=== PATIENT | male | born 1945 | race Hispanic/Latino ===

== ENCOUNTER 2018-05-18 18:01 | Inpatient (IN) | payer MEDICARE ==
--- NOTE | 2018-05-18 19:26 | Emergency Department Report ---
ED Altered Mental Status HPI - General Chief Complaint: Recheck/Abnormal Lab/Rx Stated Complaint: ABNORMAL LABS Time Seen by Provider: 05/18/18 18:30 Source: family Mode of arrival: Stretcher Limitations: No Limitations - History of Present Illness Initial Comments: 73-year-old male presents to the ED for elevated vancomycin trough level and elevated creatinine. The patient has been on vancomycin therapy for gangrenous foot and MRSA bacteremia for approximately one month now. Patient has history of dementia, and he actually pulled out his PICC line 3 days ago. On that same day the patient had a blood draw to check his vancomycin trough levels. Vancomycin was stopped 2 days prior to the blood draw. Vancomycin trough resulted at 38.4. He also had a creatinine of 3.0. Dr. Corona, infectious disease, was alerted of these lab abnormalities and instructed patient to come to the ER. -: days(s) (3) Severity: moderate Associated Symptoms: denies other symptoms - Related Data Home Medications Medication Instructions Recorded Confirmed Last Taken prednisoLONE ACETATE 1%(NF) [Pred 1 drops OP QID 01/07/13 05/18/18 Unknown Forte 1%(Nf)] Ergocalciferol [Vitamin D2] 25,000 units PO 1XW 03/24/18 05/18/18 Unknown FLUoxetine [PROzac] 20 mg PO QDAY 03/24/18 05/18/18 Unknown Previous Rx's Medication Instructions Recorded Last Taken Type AtorvaSTATin [Lipitor] 40 mg PO DAILY #30 tablet 03/27/18 Unknown Rx Ranitidine HCl [Acid Control] 150 mg PO BID #60 tablet 03/27/18 Unknown Rx Aspirin EC [Aspirin Enteric Coated 81 mg PO QDAY #30 tablet 04/26/18 Unknown Rx TAB] Clopidogrel [Plavix] 75 mg PO QDAY #30 tablet 04/26/18 Unknown Rx HYDROcodone/APAP 5-325 [Omar 1 each PO Q4HR PRN #30 tablet 04/26/18 Unknown Rx 5/325] Vancomycin 1,500 mg IV Q24H mg 04/26/18 Unknown Rx traZODone [Desyrel] 50 mg PO QHS #30 tablet 04/26/18 Unknown Rx Allergies Allergy/AdvReac Type Severity Reaction Status Date / Time No Known Allergies Allergy Verified 04/15/18 11:51 ED Review of Systems ROS: Stated complaint: ABNORMAL LABS Other details as noted in HPI Comment: All other systems reviewed and negative Constitutional: denies: chills, fever Gastrointestinal: denies: nausea, vomiting ED Past Medical Hx - Past Medical History Hx Hypertension: Yes Hx CVA: No Hx Heart Attack/AMI: Yes (s/p CABG) Hx Congestive Heart Failure: No Hx Diabetes: Yes Hx Deep Vein Thrombosis: No Hx Pulmonary Embolism: No Hx GERD: No Hx Liver Disease: No Hx Renal Disease: Yes (DAHIANA) Hx Sickle Cell Disease: No Hx Arthritis: Yes Hx Headaches / Migraines: No Hx Seizures: No Hx Kidney Stones: No Hx Psychiatric Treatment: No Hx Asthma: No Hx COPD: No Hx Tuberculosis: No Hx Dementia: Yes Hx HIV: No Additional medical history: high cholesterol defibillator - Surgical History Past Surgical History?: Yes Hx Coronary Stent: No Hx Open Heart Surgery: Yes Hx Pacemaker: No Hx Internal Defibrillator: Yes Hx Cholecystectomy: No Hx Appendectomy: No Hx Breast Surgery: No Additional Surgical History: quad bypass wound to left foot and vascular surgery - Social History Smoking Status: Former Smoker Substance Use Type: None - Medications Home Medications: Home Medications Medication Instructions Recorded Confirmed Last Taken Type prednisoLONE ACETATE 1%(NF) [Pred 1 drops OP QID 01/07/13 05/18/18 Unknown His tory Forte 1%(Nf)] Ergocalciferol [Vitamin D2] 25,000 units PO 1XW 03/24/18 05/18/18 Unknown History FLUoxetine [PROzac] 20 mg PO QDAY 03/24/18 05/18/18 Unknown History AtorvaSTATin [Lipitor] 40 mg PO DAILY #30 tablet 03/27/18 05/18/18 Unknown Rx Ranitidine HCl [Acid Control] 150 mg PO BID #60 tablet 03/27/18 05/18/18 Unknown Rx Aspirin EC [Aspirin Enteric Coated 81 mg PO QDAY #30 tablet 04/26/18 05/18/18 Unknown Rx TAB] Clopidogrel [Plavix] 75 mg PO QDAY #30 tablet 04/26/18 05/18/18 Unknown Rx HYDROcodone/APAP 5-325 [Omar 1 each PO Q4HR PRN #30 tablet 04/26/18 05/18/18 Unknown Rx 5/325] Vancomycin 1,500 mg IV Q24H mg 04/26/18 05/18/18 Unknown Rx traZODone [Desyrel] 50 mg PO QHS #30 tablet 04/26/18 05/18/18 Unknown Rx ED Physical Exam - General Limitations: No Limitations General appearance: alert, in no apparent distress - Head Head exam: Present: atraumatic, normocephalic - Eye Eye exam: Present: normal appearance - ENT ENT exam: Present: mucous membranes moist - Neck Neck exam: Present: normal inspection - Respiratory Respiratory exam: Present: normal lung sounds bilaterally. Absent: respiratory distress - Cardiovascular Cardiovascular Exam: Present: regular rate, normal rhythm - GI/Abdominal GI/Abdominal exam: Present: soft. Absent: distended - Extremities Exam Extremities exam: Present: other (right AKA present; dark discoloration to plantar aspect of left foot) - Neurological Exam Neurological exam: Present: alert, altered (baseline, hx of dementia) - Psychiatric Psychiatric exam: Present: normal affect, normal mood - Skin Skin exam: Present: warm, dry, intact, normal color. Absent: rash ED Course Vital Signs 05/18/18 05/18/18 05/18/18 18:15 18:18 18:42 Temperature 98.9 F 98.9 F Pulse Rate 93 H 93 H 123 H Respiratory 18 18 12 Rate Blood Pressure 113/69 Blood Pressure 113/69 [Right] O2 Sat by Pulse 99 99 Oximetry 05/18/18 05/18/18 05/18/18 18:45 19:01 19:15 Temperature Pulse Rate 84 79 77 Respiratory 17 25 H 20 Rate Blood Pressure 139/85 146/79 Blood Pressure [Right] O2 Sat by Pulse 96 95 Oximetry 05/18/18 05/18/18 05/18/18 19:30 19:45 20:00 Temperature Pulse Rate 78 76 80 Respiratory 18 16 17 Rate Blood Pressure 153/82 153/82 164/89 Blood Pressure [Right] O2 Sat by Pulse 95 95 96 Oximetry 05/18/18 05/18/18 05/18/18 20:15 20:30 20:45 Temperature Pulse Rate 81 79 92 H Respiratory 19 18 12 Rate Blood Pressure 162/92 162/92 162/92 Blood Pressure [Right] O2 Sat by Pulse 95 95 95 Oximetry 05/18/18 05/18/18 05/18/18 21:15 21:45 22:21 Temperature Pulse Rate 84 85 97 H Respiratory 20 16 20 Rate Blood Pressure 178/96 167/93 170/103 Blood Pressure [Right] O2 Sat by Pulse 98 97 99 Oximetry 05/18/18 05/18/18 22:31 22:41 Temperature Pulse Rate 90 92 H Respiratory 16 22 Rate Blood Pressure 170/103 170/103 Blood Pressure [Right] O2 Sat by Pulse 97 99 Oximetry - Consultations Consultation #1: 05/18/18 19:44 Spoke w/ Dr Corona. States pt does not require additional vancomycin, however, should be admitted for his acute renal failure. - Lab Data Result diagrams: 05/18/18 19:50 05/18/18 19:50 Lab Results 05/18/18 05/18/18 05/18/18 Range/Units 19:29 19:50 19:50 WBC 8.0 (4.5-11.0) K/mm3 RBC 4.09 (3.65-5.03) M/mm3 Hgb 11.8 (11.8-15.2) gm/dl Hct 34.6 L (35.5-45.6) % MCV 85 (84-94) fl MCH 29 (28-32) pg MCHC 34 (32-34) % RDW 14.3 (13.2-15.2) % Plt Count 245 (140-440) K/mm3 Lymph % (Auto) 14.3 (13.4-35.0) % [place] % (Auto) 9.6 H (0.0-7.3) % Eos % (Auto) 5.9 H (0.0-4.3) % Baso % (Auto) 0.8 (0.0-1.8) % Lymph # 1.1 L (1.2-5.4) K/mm3 [place] # 0.8 (0.0-0.8) K/mm3 Eos # 0.5 H (0.0-0.4) K/mm3 Baso # 0.1 (0.0-0.1) K/mm3 Seg Neutrophils % 69.4 (40.0-70.0) % Seg Neutrophils # 5.6 (1.8-7.7) K/mm3 Sodium 141 (137-145) mmol/L Potassium 2.8 L* (3.6-5.0) mmol/L Chloride 100.3 (98-107) mmol/L Carbon Dioxide 28 (22-30) mmol/L Anion Gap 16 mmol/L BUN 34 H (9-20) mg/dL Creatinine 3.6 H (0.8-1.5) mg/dL Estimated GFR 17 ml/min BUN/Creatinine Ratio 9 % Glucose 178 H (75-100) mg/dL POC Glucose (70-105) Calcium 8.6 (8.4-10.2) mg/dL Urine Color Yellow (Yellow) Urine Turbidity Clear (Clear) Urine pH 6.0 (5.0-7.0) Ur Specific Lee 1.011 (1.003-1.030) Urine Protein >500 (Negative) mg/dL Urine Glucose (UA) 150 (Negative) mg/dL Urine Ketones Neg (Negative) mg/dL Urine Blood Mod (Negative) Urine Nitrite Neg (Negative) Urine Bilirubin Neg (Negative) Urine Urobilinogen < 2.0 (<2.0) mg/dL Ur Leukocyte Esterase Neg (Negative) Urine WBC (Auto) 5.0 (0.0-6.0) /HPF Urine RBC (Auto) > 182.0 (0.0-6.0) /HPF U Epithel Cells (Auto) 1.0 (0-13.0) /HPF Urine Bacteria (Auto) 1+ (Negative) /HPF Urine Mucus Few /HPF 05/18/18 Range/Units 21:14 WBC (4.5-11.0) K/mm3 RBC (3.65-5.03) M/mm3 Hgb (11.8-15.2) gm/dl Hct (35.5-45.6) % MCV (84-94) fl MCH (28-32) pg MCHC (32-34) % RDW (13.2-15.2) % Plt Count (140-440) K/mm3 Lymph % (Auto) (13.4-35.0) % [place] % (Auto) (0.0-7.3) % Eos % (Auto) (0.0-4.3) % Baso % (Auto) (0.0-1.8) % Lymph # (1.2-5.4) K/mm3 [place] # (0.0-0.8) K/mm3 Eos # (0.0-0.4) K/mm3 Baso # (0.0-0.1) K/mm3 Seg Neutrophils % (40.0-70.0) % Seg Neutrophils # (1.8-7.7) K/mm3 Sodium (137-145) mmol/L Potassium (3.6-5.0) mmol/L Chloride (98-107) mmol/L Carbon Dioxide (22-30) mmol/L Anion Gap mmol/L BUN (9-20) mg/dL Creatinine (0.8-1.5) mg/dL Estimated GFR ml/min BUN/Creatinine Ratio % Glucose (75-100) mg/dL POC Glucose 164 H (70-105) Calcium (8.4-10.2) mg/dL Urine Color (Yellow) Urine Turbidity (Clear) Urine pH (5.0-7.0) Ur Specific Lee (1.003-1.030) Urine Protein (Negative) mg/dL Urine Glucose (UA) (Negative) mg/dL Urine Ketones (Negative) mg/dL Urine Blood (Negative) Urine Nitrite (Negative) Urine Bilirubin (Negative) Urine Urobilinogen (<2.0) mg/dL Ur Leukocyte Esterase (Negative) Urine WBC (Auto) (0.0-6.0) /HPF Urine RBC (Auto) (0.0-6.0) /HPF U Epithel Cells (Auto) (0-13.0) /HPF Urine Bacteria (Auto) (Negative) /HPF Urine Mucus /HPF Critical care attestation.: If time is entered above; I have spent that time in minutes in the direct care of this critically ill patient, excluding procedure time. ED Disposition Clinical Impression: Acute renal failure, Hypokalemia Disposition: OP ADMIT IP TO THIS HOSP Is pt being admited?: Yes Condition: Stable Time of Disposition: 21:23
--- NOTE | 2018-05-18 19:47 | Emergency Department Report ---
ED General Adult HPI - General Chief complaint: Recheck/Abnormal Lab/Rx Stated complaint: ABNORMAL LABS Time Seen by Provider: 05/18/18 18:30 Source: family Mode of arrival: Stretcher Limitations: No Limitations - History of Present Illness Severity scale (0 -10): 0 - Related Data Home Medications Medication Instructions Recorded Confirmed Last Taken prednisoLONE ACETATE 1%(NF) [Pred 1 drops OP QID 01/07/13 04/15/18 Unknown Forte 1%(Nf)] Ergocalciferol [Vitamin D2] 25,000 units PO 1XW 03/24/18 04/15/18 Unknown FLUoxetine [PROzac] 20 mg PO QDAY 03/24/18 04/15/18 Unknown Previous Rx's Medication Instructions Recorded Last Taken Type AtorvaSTATin [Lipitor] 40 mg PO DAILY #30 tablet 03/27/18 Unknown Rx Ranitidine HCl [Acid Control] 150 mg PO BID #60 tablet 03/27/18 Unknown Rx Aspirin EC [Aspirin Enteric Coated 81 mg PO QDAY #30 tablet 04/26/18 Unknown Rx TAB] Clopidogrel [Plavix] 75 mg PO QDAY #30 tablet 04/26/18 Unknown Rx HYDROcodone/APAP 5-325 [Imperial 1 each PO Q4HR PRN #30 tablet 04/26/18 Unknown Rx 5/325] Vancomycin 1,500 mg IV Q24H mg 04/26/18 Unknown Rx traZODone [Desyrel] 50 mg PO QHS #30 tablet 04/26/18 Unknown Rx Allergies Allergy/AdvReac Type Severity Reaction Status Date / Time No Known Allergies Allergy Verified 04/15/18 11:51 ED Review of Systems ROS: Stated complaint: ABNORMAL LABS Other details as noted in HPI ED Past Medical Hx - Past Medical History Hx Hypertension: Yes Hx CVA: No Hx Heart Attack/AMI: Yes (s/p CABG) Hx Congestive Heart Failure: No Hx Diabetes: Yes Hx Deep Vein Thrombosis: No Hx Pulmonary Embolism: No Hx GERD: No Hx Liver Disease: No Hx Renal Disease: Yes (DAHIANA) Hx Sickle Cell Disease: No Hx Arthritis: Yes Hx Headaches / Migraines: No Hx Seizures: No Hx Kidney Stones: No Hx Psychiatric Treatment: No Hx Asthma: No Hx COPD: No Hx Tuberculosis: No Hx Dementia: Yes Hx HIV: No Additional medical history: high cholesterol defibillator - Surgical History Past Surgical History?: Yes Hx Coronary Stent: No Hx Open Heart Surgery: Yes Hx Pacemaker: No Hx Internal Defibrillator: Yes Hx Cholecystectomy: No Hx Appendectomy: No Hx Breast Surgery: No Additional Surgical History: quad bypass wound to left foot and vascular surgery - Social History Smoking Status: Former Smoker Substance Use Type: None - Medications Home Medications: Home Medications Medication Instructions Recorded Confirmed Last Taken Type prednisoLONE ACETATE 1%(NF) [Pred 1 drops OP QID 01/07/13 04/15/18 Unknown History Forte 1%(Nf)] Ergocalciferol [Vitamin D2] 25,000 units PO 1XW 03/24/18 04/15/18 Unknown History FLUoxetine [PROzac] 20 mg PO QDAY 03/24/18 04/15/18 Unknown History AtorvaSTATin [Lipitor] 40 mg PO DAILY #30 tablet 03/27/18 04/15/18 Unknown Rx Ranitidine HCl [Acid Control] 150 mg PO BID #60 tablet 03/27/18 04/15/18 Unknown Rx Aspirin EC [Aspirin Enteric Coated 81 mg PO QDAY #30 tablet 04/26/18 Unknown Rx TAB] Clopidogrel [Plavix] 75 mg PO QDAY #30 tablet 04/26/18 Unknown Rx HYDROcodone/APAP 5-325 [Imperial 1 each PO Q4HR PRN #30 tablet 04/26/18 Unknown Rx 5/325] Vancomycin 1,500 mg IV Q24H mg 04/26/18 Unknown Rx traZODone [Desyrel] 50 mg PO QHS #30 tablet 04/26/18 Unknown Rx ED Physical Exam - General Limitations: No Limitations ED Course Vital Signs 05/18/18 05/18/18 18:15 18:18 Temperature 98.9 F 98.9 F Pulse Rate 93 H 93 H Respiratory 18 18 Rate Blood Pressure 113/69 Blood Pressure 113/69 [Right] O2 Sat by Pulse 99 99 Oximetry Critical care attestation.: If time is entered above; I have spent that time in minutes in the direct care of this critically ill patient, excluding procedure time. ED Disposition Condition: Stable Referrals: PRIMARY CARE,MD [Primary Care Provider] - 3-5 Days
[2018-05-18 20:00] LABS: Basophils # (Auto) 0.1 K/mm3 (0.0-0.1); Basophils % (Auto) 0.8 % (0.0-1.8); Eosinophils # (Auto) 0.5 K/mm3 (0.0-0.4); Eosinophils % (Auto) 5.9 % (0.0-4.3); Hematocrit 34.6 % (35.5-45.6); Hemoglobin 11.8 gm/dl (11.8-15.2); Lymphocytes # (Auto) 1.1 K/mm3 (1.2-5.4); Lymphocytes % (Auto) 14.3 % (13.4-35.0); Mean Corpuscular HGB Conc 34 % (32-34); Mean Corpuscular Volume 85 fl (84-94); Monocytes # (Auto) 0.8 K/mm3 (0.0-0.8); Monocytes % (Auto) 9.6 % (0.0-7.3); Platelet Count 245 K/mm3 (140-440); Red Blood Count 4.09 M/mm3 (3.65-5.03); Red Cell Distribution Width 14.3 % (13.2-15.2)
[2018-05-18 20:29] LABS: Calcium 8.6 mg/dL (8.4-10.2)
[2018-05-18] MEDS ORDERED: NACL 0.9% 1000 ML 1,000 ML IV ONE (20:56)
[2018-05-18] MEDS ORDERED: K-DUR PO ONE (20:56)
[2018-05-18 21:52] LABS: Bacteria,Urine 1+ /HPF (Negative); Bilirubin,Urine NEG (Negative); Blood,Urine MOD (Negative); Color,Urine Yellow (Yellow); Mucus,Urine FEW /HPF; Urobilinogen,Urine < 2.0 mg/dL (<2.0)
[2018-05-18 21:56] LABS: Protein,Urine >500 mg/dL (Negative); RBC,Urine > 182.0 /HPF (0.0-6.0)
[2018-05-18] MEDS ORDERED: ZOFRAN IV PRN (22:05)
[2018-05-18] MEDS ORDERED: TYLENOL PO PRN (22:05)
[2018-05-18] MEDS ORDERED: D50W (25GM) Syringe IV PRN (22:06)
[2018-05-18] MEDS ORDERED: NORCO 5/325 PO PRN (22:09)
[2018-05-18] MEDS ORDERED: KCL 10MEQ/100ML 0 MEQ/0 ML BAG IV ONE (22:28)
[2018-05-18] MEDS: KCL 10MEQ/100ML 10 MEQ/100 ML BAG IV SCH (22:43)
[2018-05-18] MEDS ORDERED: NACL 0.9% 1000 ML 1,000 ML IV SCH (23:00)
[2018-05-19] MEDS: KCL 10MEQ/100ML 10 MEQ/100 ML BAG IV SCH (00:17)
[2018-05-19] MEDS ORDERED: APRESOLINE IV PRN (01:08)
--- NOTE | 2018-05-19 07:25 | History and Physical Report ---
CHIEF COMPLAINT: Finding of abnormal lab result. HISTORY OF PRESENTING ILLNESS: The patient is a 73-year-old male who was treated for gangrenous foot and MRSA bacteremia about one month ago and then sent home on vancomycin antibiotics. The patient was going to have his vancomycin level checked and it was discovered to be too high with result of 38.4 and also elevated creatinine of 3.0. Based on this, the patient was sent back to the Emergency Room. There is no history of fever or chills at this point. There is no history of nausea or vomiting and the patient was then evaluated in the Emergency Room and found to have low potassium level as well as acute kidney injury. Based on this, the patient was presented for admission. PAST MEDICAL HISTORY: Pertinent for hypertension, coronary artery disease, diabetes mellitus, acute kidney injury, arthritis, dementia and defibrillator placement. PAST SURGICAL HISTORY: Pertinent for open heart surgery, defibrillator placement, vascular surgery. FAMILY HISTORY: Family history is noncontributory. SOCIAL HISTORY: The patient used to be a smoker, but does not smoke currently, does not drink alcohol and does not use illicit drugs. MEDICATIONS: The patient is on prednisolone acetate or Pred Forte 1% one drop to the affected eye q.i.d. Also, the patient is on vitamin D2 25,000 units by mouth every week and Prozac 20 mg by mouth daily. Also, the patient is on Lipitor 40 mg by mouth daily, ranitidine 150 mg by mouth twice daily, enteric-coated aspirin 81 mg by mouth daily, clopidogrel, Plavix 75 mg by mouth daily, [place] 5/325 mg one by mouth every 4 hours as needed for pain. Also, the patient is on vancomycin 1500 mg IV q. 24 hours and trazodone 50 mg at bedtime. ALLERGIES: There are no known drug allergies. REVIEW OF SYSTEMS: CONSTITUTIONAL: There is no fever, no chills, no diaphoresis. HEENT: There is no headache or sore throat. CARDIOVASCULAR SYSTEM: There is no chest pain or orthopnea. RESPIRATORY SYSTEM: There is no shortness of breath or cough. GASTROINTESTINAL SYSTEM: There is no nausea, no vomiting, no abdominal pain, diarrhea or constipation. NEUROLOGICAL SYSTEM: There is no numbness, no dizziness, no altered mental status. MUSCULOSKELETAL SYSTEM: There is no joint pain or swelling. DERMATOLOGICAL SYSTEM: There is no skin rash or itching. GENITOURINARY SYSTEM: There is no dysuria, hematuria or flank pain. Rest of system review is normal. PHYSICAL EXAMINATION: GENERAL: At the time of exam, the patient was found to be alert, oriented x 3 and not in acute distress. VITAL SIGNS: At the initial time of presentation showed temperature of 98.9 degrees Fahrenheit, pulse of 93, respiration 18, blood pressure 113/69, O2 sat of 99% on room air. HEENT: Show pupils to be equal, round, reactive to light and accommodating. Extraocular muscles are intact. NECK: Supple with no JVD or carotid bruit. CARDIOVASCULAR SYSTEM: Showed normal first and second heart sounds with no gallops or murmurs. RESPIRATORY SYSTEM: Show good air entry on both sides of the lung with no abnormal breath sounds. GASTROINTESTINAL SYSTEM: Show abdomen to be full, soft, nontender with no organomegaly or rigidity. NEUROLOGIC: Neuro exam shows no focal deficit. MUSCULOSKELETAL SYSTEM: Show no joint swelling or tenderness. DERMATOLOGICAL SYSTEM: Show no skin rash. GENITOURINARY SYSTEM: Showing no costovertebral angle tenderness. PERTINENT LABORATORY AND IMAGING STUDIES: The patient has CBC done with normal white count, normal hemoglobin and slightly low hematocrit of 34.6. The rest of CBC shows elevated monocyte count of 9.6% and elevated eosinophil count of 5.9 on CBC differential. The patient's chemistry showed low potassium level of 2.8 with elevated BUN of 34 and elevated creatinine of 3.6. Rest of the patient's chemistry was unremarkable. Urinalysis came back unremarkable and the patient's vancomycin trough level is high with a value of 24.8. Imaging studies, no imaging studies were done at this time. DIAGNOSES: 1. Acute renal failure. 2. Hypokalemia. 3. Elevated vancomycin level. PLAN OF ACTION: 1. The patient will be admitted to telemetry. 2. The patient will continue Infectious Disease consult with Julián Miller, who saw patient during the last visit when he had MRSA that prompted vancomycin treatment. 3. The patient will have Nephrology consult with Dr. Goldstein for acute kidney injury, possibly due to high vancomycin level. 4. The patient will be on Accu-Chek before meals and at bedtime, followed by low dose sliding scale using regular insulin coverage. 5. The patient will have IV potassium replacement 10 mEq in 100mL of normal saline given over 1 hour. The patient has already had 60 mg of potassium by mouth in the Emergency Room. 6. The patient will have basic metabolic panel checked this morning to trend the potassium level. 7. The patient will be on his home medications as shown in the medication reconciliation and this would involve holding vancomycin until the level comes down. 8. The patient will be on IV Zofran 4 mg every 8 hours as needed for nausea and vomiting. 9. The patient will be on consistent carbohydrate, low sodium diet. 10. The patient will be on sequential compressive device as DVT prophylaxis. JOB# [id number] OCN/NTS
[2018-05-19] MEDS ORDERED: NON-FORMULARY (Ranitidine Hcl [Acid Control] 150 MG) PO SCH (10:00)
[2018-05-19] MEDS ORDERED: PREDNISOLONE ACETATE 1% OP SCH (10:00)
[2018-05-19] MEDS: PLAVIX PO SCH (10:29)
[2018-05-19] MEDS: PEPCID PO SCH ×2 (10:29→22:58)
[2018-05-19] MEDS: HALFPRIN EC PO SCH (10:29)
[2018-05-19] MEDS: PROzac PO SCH (10:30)
[2018-05-19] MEDS: HumuLIN R SUB-Q SCH ×4 (10:34→22:58)
--- NOTE | 2018-05-19 11:59 | Consultation ---
History of Present Illness - Reason for Consult Consult date: 05/19/18 acute renal failure, accelerated hypertension Requesting physician: RODRIGUEZ ANAYA - History of Present Illness 73-year-old male presents to the ED for elevated vancomycin trough level and elevated creatinine. The patient has been on vancomycin therapy for gangrenous foot and MRSA bacteremia for approximately one month now. Patient has history of dementia, and he actually pulled out his PICC line 3 days ago. On that same day the patient had a blood draw to check his vancomycin trough levels. Vancomycin was stopped 2 days prior to the blood draw. Vancomycin trough resulted at 38.4. He also had a creatinine of 3.0. Dr. Corona, infectious disease, was alerted of these lab abnormalities and instructed patient to come to the ER. -: days(s) (3) Severity: moderate Associated Symptoms: denies other symptoms ROS: Stated complaint: ABNORMAL LABS Other details as noted in HPI Comment: All other systems reviewed and negative Constitutional: denies: chills, fever Gastrointestinal: denies: nausea, vomiting - Past Medical History Hx Hypertension: Yes Hx CVA: No Hx Heart Attack/AMI: Yes (s/p CABG) Hx Congestive Heart Failure: No Hx Diabetes: Yes Hx Deep Vein Thrombosis: No Hx Pulmonary Embolism: No Hx GERD: No Hx Liver Disease: No Hx Renal Disease: Yes (DAHIANA) Hx Sickle Cell Disease: No Hx Arthritis: Yes Hx Headaches / Migraines: No Hx Seizures: No Hx Kidney Stones: No Hx Psychiatric Treatment: No Hx Asthma: No Hx COPD: No Hx Tuberculosis: No Hx Dementia: Yes Hx HIV: No Additional medical history: high cholesterol defibillator - Surgical History Past Surgical History?: Yes Hx Coronary Stent: No Hx Open Heart Surgery: Yes Hx Pacemaker: No Hx Internal Defibrillator: Yes Hx Cholecystectomy: No Hx Appendectomy: No Hx Breast Surgery: No Additional Surgical History: quad bypass wound to left foot and vascular surgery - Social History Smoking Status: Former Smoker Substance Use Type: None Medications and Allergies Allergies Allergy/AdvReac Type Severity Reaction Status Date / Time No Known Allergies Allergy Verified 04/15/18 11:51 Home Medications Medication Instructions Recorded Confirmed Last Taken Type prednisoLONE ACETATE 1%(NF) [Pred 1 drops OP QID 01/07/13 05/18/18 Unknown History Forte 1%(Nf)] Ergocalciferol [Vitamin D2] 25,000 units PO 1XW 03/24/18 05/18/18 Unknown History FLUoxetine [PROzac] 20 mg PO QDAY 03/24/18 05/18/18 Unknown History AtorvaSTATin [Lipitor] 40 mg PO DAILY #30 tablet 03/27/18 05/18/18 Unknown Rx Ranitidine HCl [Acid Control] 150 mg PO BID #60 tablet 03/27/18 05/18/18 Unknown Rx Aspirin EC [Aspirin Enteric Coated 81 mg PO QDAY #30 tablet 04/26/18 05/18/18 Unknown Rx TAB] Clopidogrel [Plavix] 75 mg PO QDAY #30 tablet 04/26/18 05/18/18 Unknown Rx HYDROcodone/APAP 5-325 [[place] 1 each PO Q4HR PRN #30 tablet 04/26/18 05/18/18 Unknown Rx 5/325] Vancomycin 1,500 mg IV Q24H mg 04/26/18 05/18/18 Unknown Rx traZODone [Desyrel] 50 mg PO QHS #30 tablet 04/26/18 05/18/18 Unknown Rx Active Meds: Active Medications Acetaminophen (Tylenol) 650 mg PO Q4H PRN PRN Reason: Fever >101 Acetaminophen/Hydrocodone Bitart ([place] 5/325) 1 each PO Q4HR PRN PRN Reason: Pain Aspirin (Halfprin Ec) 81 mg PO QDAY [facility] Last Admin: 05/19/18 10:29 Dose: 81 mg Documented by: Atorvastatin Calcium (Lipitor) 40 mg PO DAILY [facility] Last Admin: 05/19/18 10:29 Dose: 40 mg Documented by: Clopidogrel Bisulfate (Plavix) 75 mg PO QDAY [facility] Last Admin: 05/19/18 10:29 Dose: 75 mg Documented by: Dextrose (D50w (25gm) Syringe) 50 ml IV PRN PRN PRN Reason: Hypoglycemia Ergocalciferol (Vitamin D2) 25,000 unit PO [facility] Famotidine (Pepcid) 10 mg PO BID [facility] Last Admin: 05/19/18 10:29 Dose: 10 mg Documented by: Fluoxetine HCl (Prozac) 20 mg PO QDAY [facility] Last Admin: 05/19/18 10:30 Dose: 20 mg Documented by: Hydralazine HCl (Apresoline) 10 mg IV Q4HR PRN PRN Reason: Blood Pressure Last Admin: 05/19/18 01:26 Dose: 10 mg Documented by: Insulin Human Regular (Humulin R) 0 units SUB-Q [facility]; Protocol Last Admin: 05/19/18 10:34 Dose: Not Given Documented by: Insulin Human Regular ([facility]ulin R) [facility]; Protocol Ondansetron HCl (Zofran) 4 mg IV Q8H PRN PRN Reason: Nausea And Vomiting Last Admin: 05/19/18 01:26 Dose: 4 mg Documented by: Prednisolone Acetate (Pred Forte 1%) 1 drops OU QID LEROY Trazodone HCl (Desyrel) 50 mg PO QHS [facility] Exam - Vital Signs Vital signs: Vital Signs Temp Pulse Resp BP Pulse Ox 98.9 F 93 H 18 113/69 99 05/18/18 18:15 05/18/18 18:15 05/18/18 18:15 05/18/18 18:15 05/18/18 18:15 - Physical Exam Narrative exam: - General Limitations: No Limitations General appearance: alert, in no apparent distress - Head Head exam: Present: atraumatic, normocephalic - Eye Eye exam: Present: normal appearance - ENT ENT exam: Present: mucous membranes moist - Neck Neck exam: Present: normal inspection - Respiratory Respiratory exam: Present: normal lung sounds bilaterally. Absent: respiratory distress - Cardiovascular Cardiovascular Exam: Present: regular rate, normal rhythm - GI/Abdominal GI/Abdominal exam: Present: soft. Absent: distended - Extremities Exam Extremities exam: Present: other (right AKA present; dark discoloration to plantar aspect of left foot) - Neurological Exam Neurological exam: Present: alert, altered (baseline, hx of dementia) - Psychiatric Psychiatric exam: Present: normal affect, normal mood - Skin Skin exam: Present: warm, dry, intact, normal color. 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
[2018-05-19] MEDS: PRED FORTE 1% OU SCH ×4 (12:47→23:02)
--- NOTE | 2018-05-19 17:30 | Progress Note ---
Assessment and Plan - Left diabetic foot ulcer Local wound care Consultants Wound cre physician Comments IV Zosyn, renal dose Continue IV vancomycin when the level returns to normal Check Lactic acid level Obtain Arterial Doppler left leg - Elevated vancomycin dose Patient was on home IV vancomycin. Serum level was found to be elevated for which he came to the hospital. We will obtain clinical pharmacology consult to assist dosing in the presence of acute renal failure - Acute renal failure Problem Secondary to high vancomycin level Hold vancomycin Human Resource Officer following - Diabetes mellitus Obtain A1c, lipid level, urine microalbumin Issue with sliding scale insulin Consistent carbohydrate diet - Peripheral arterial disease status post right above-knee amputation Obtain arterial Doppler left leg - H/o CAD ASA, BB Subjective Date of service: 05/19/18 Principal diagnosis: infected wound on the left foot, sepsis Interval history: Patient evaluated in bed in no obvious distress. Remains afebrile Objective - Exam Narrative Exam: Constitutional: Well-nourished well-developed. In no distress Head: Normocephalic atraumatic Eyes: Pupils are equal round and reactive to light Nose: No enlarged turbinates, no septal deviation. Mouth: Moist mucous membranes. Neck: Supple no thyromegaly. No bruit. No JVD Heart: Regular rate and rhythm, S1-S2 normal. No rubs murmurs or gallop Lungs: Clear to auscultation bilaterally. no rales or rhonchi Abdomen: Soft, nontender. Bowel sound are present. Extremities: Right [id number]-[id number] amputation. Left diabetic foot ulcer. Neuro: Alert oriented Oriented x3. No focal sensory or motor deficit. Skin: No rashes or hyperpigmented spots Musculoskeletal system: No joint pain or swelling Hematological: No petechia or subcutanous hemorrhages. Immunological: No multiple septic spots on the skin Lymphatic: No generalized lymphadenopathy Psychiatry: Euthymic. Calm. - Constitutional Vitals: Vital Signs - 12hr 05/19/18 05/19/18 08:32 10:00 Temperature 98.0 F Pulse Rate 101 H Respiratory 16 18 Rate Blood Pressure 136/82 O2 Sat by Pulse 95 Oximetry - Labs CBC & Chem 7: 05/18/18 19:50 05/19/18 06:01 Labs: Abnormal lab results 05/18/18 05/18/18 05/18/18 Range/Units 19:50 19:50 21:14 Hct 34.6 L (35.5-45.6) % [place] % (Auto) 9.6 H (0.0-7.3) % Eos % (Auto) 5.9 H (0.0-4.3) % Lymph # 1.1 L (1.2-5.4) K/mm3 Eos # 0.5 H (0.0-0.4) K/mm3 Potassium 2.8 L* (3.6-5.0) mmol/L BUN 34 H (9-20) mg/dL Creatinine 3.6 H (0.8-1.5) mg/dL Glucose 178 H (75-100) mg/dL POC Glucose 164 H (70-105) Calcium (8.4-10.2) mg/dL Vancomycin Trough (5.0-20.0) ug/mL 05/19/18 05/19/18 05/19/18 Range/Units 00:05 05:49 06:01 Hct (35.5-45.6) % [place] % (Auto) (0.0-7.3) % Eos % (Auto) (0.0-4.3) % Lymph # (1.2-5.4) K/mm3 Eos # (0.0-0.4) K/mm3 Potassium (3.6-5.0) mmol/L BUN 31 H (9-20) mg/dL Creatinine 3.3 H (0.8-1.5) mg/dL Glucose 155 H (75-100) mg/dL POC Glucose 163 H (70-105) Calcium 8.0 L (8.4-10.2) mg/dL Vancomycin Trough 24.8 H (5.0-20.0) ug/mL 05/19/18 Range/Units 12:27 Hct (35.5-45.6) % [place] % (Auto) (0.0-7.3) % Eos % (Auto) (0.0-4.3) % Lymph # (1.2-5.4) K/mm3 Eos # (0.0-0.4) K/mm3 Potassium (3.6-5.0) mmol/L BUN (9-20) mg/dL Creatinine (0.8-1.5) mg/dL Glucose (75-100) mg/dL POC Glucose 276 H (70-105) Calcium (8.4-10.2) mg/dL Vancomycin Trough (5.0-20.0) ug/mL
[2018-05-19] MEDS: NACL 0.45% 1000 ML 1,000 ML IV SCH (19:54)
[2018-05-19] MEDS: DESYREL PO SCH (22:58)
[2018-05-20 01:56] LABS: Basophils # (Auto) 0.1 K/mm3 (0.0-0.1); Basophils % (Auto) 0.7 % (0.0-1.8); Eosinophils # (Auto) 0.3 K/mm3 (0.0-0.4); Eosinophils % (Auto) 3.6 % (0.0-4.3); Hematocrit 32.9 % (35.5-45.6); Lymphocytes # (Auto) 1.3 K/mm3 (1.2-5.4); Lymphocytes % (Auto) 15.1 % (13.4-35.0); Mean Corpuscular HGB Conc 34 % (32-34); Mean Corpuscular Volume 86 fl (84-94); Monocytes % (Auto) 11.2 % (0.0-7.3); Platelet Count 216 K/mm3 (140-440); Red Blood Count 3.84 M/mm3 (3.65-5.03); Red Cell Distribution Width 14.7 % (13.2-15.2)
[2018-05-20 02:13] LABS: Albumin 2.6 g/dL (3.9-5); Calcium 8.2 mg/dL (8.4-10.2); Chol/HDL Ratio 2.57 %
[2018-05-20] MEDS: HumuLIN R SUB-Q SCH ×4 (08:38→22:16)
--- NOTE | 2018-05-20 09:56 | Progress Note ---
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 he has ATN due to vancomycin toxicity follow up daily random vanco levels, still 22.9 and not clearing, will continue to follow strict i/os, avoid nephrotoxins optimized meds for htn and dm -sp bedside debridement of left foot by GS on 04/23/18, cont wound care - sp revasc of LLE by luz saldaña on 04/18/18 Subjective Date of service: 05/20/18 Principal diagnosis: infected wound on the left foot, sepsis Interval history: resting well in bed today Objective - Exam Narrative Exam: - General Limitations: No Limitations General appearance: alert, in no apparent distress - Head Head exam: Present: atraumatic, normocephalic - Eye Eye exam: Present: normal appearance - ENT ENT exam: Present: mucous membranes moist - Neck Neck exam: Present: normal inspection - Respiratory Respiratory exam: Present: normal lung sounds bilaterally. Absent: respiratory distress - Cardiovascular Cardiovascular Exam: Present: regular rate, normal rhythm - GI/Abdominal GI/Abdominal exam: Present: soft. Absent: distended - Extremities Exam Extremities exam: Present: other (right AKA present; dark discoloration to plantar aspect of left foot) - Neurological Exam Neurological exam: Present: alert, altered (baseline, hx of dementia) - Psychiatric Psychiatric exam: Present: normal affect, normal mood - Skin Skin exam: Present: warm, dry, intact, normal color. Absent: rash - Vital Signs Vital signs: Vital Signs - 12hr 05/19/18 05/19/18 05/20/18 22:00 23:57 00:37 Temperature 98.4 F Pulse Rate 87 89 Pulse Rate [ 90 Right Radial] Respiratory 18 17 Rate Blood Pressure Blood Pressure 135/78 [Right] O2 Sat by Pulse 93 94 Oximetry 05/20/18 05/20/18 04:36 04:38 Temperature 97.3 F L Pulse Rate 89 Pulse Rate [ Right Radial] Respiratory 18 Rate Blood Pressure 123/98 Blood Pressure [Right] O2 Sat by Pulse 96 Oximetry - Lab 05/20/18 01:18 05/20/18 01:18 Most recent lab results Calcium 8.2 mg/dL (8.4-10.2) L 05/20/18 01:18 Medications & Allergies - Medications Allergies/Adverse Reactions: Allergies No Known Allergies Allergy (Verified 04/15/18 11:51) Home Medications: Home Medications Medication Instructions Recorded Confirmed Last Taken Type prednisoLONE ACETATE 1%(NF) [Pred 1 drops OP QID 01/07/13 05/18/18 Unknown History Forte 1%(Nf)] Ergocalciferol [Vitamin D2] 25,000 units PO 1XW 03/24/18 05/18/18 Unknown History FLUoxetine [PROzac] 20 mg PO QDAY 03/24/18 05/18/18 Unknown History AtorvaSTATin [Lipitor] 40 mg PO DAILY #30 tablet 03/27/18 05/18/18 Unknown Rx Ranitidine HCl [Acid Control] 150 mg PO BID #60 tablet 03/27/18 05/18/18 Unknown Rx Aspirin EC [Aspirin Enteric Coated 81 mg PO QDAY #30 tablet 04/26/18 05/18/18 Unknown Rx TAB] Clopidogrel [Plavix] 75 mg PO QDAY #30 tablet 04/26/18 05/18/18 Unknown Rx HYDROcodone/APAP 5-325 [[place] 1 each PO Q4HR PRN #30 tablet 04/26/18 05/18/18 Unknown Rx 5/325] Vancomycin 1,500 mg IV Q24H mg 04/26/18 05/18/18 Unknown Rx traZODone [Desyrel] 50 mg PO QHS #30 tablet 04/26/18 05/18/18 Unknown Rx Active Medications: Generic Name Dose Route Start Last Admin Trade Name Freq PRN Reason Stop Dose Admin Acetaminophen 650 mg 05/18/18 22:05 Tylenol PO Q4H PRN Fever >101 Acetaminophen/Hydrocodone Bitart 1 each 05/18/18 22:09 [place] 5/325 PO Q4HR PRN Pain Aspirin 81 mg 05/19/18 10:00 05/19/18 10:29 Halfprin Ec PO 81 mg QDAY LEROY Administration Atorvastatin Calcium 40 mg 05/19/18 10:00 05/19/18 10:29 Lipitor PO 40 mg DAILY LEROY Administration Clopidogrel Bisulfate 75 mg 05/19/18 10:00 05/19/18 10:29 Plavix PO 75 mg QDAY LEROY Administration Dextrose 50 ml 05/18/18 22:06 D50w (25gm) Syringe IV PRN PRN Hypoglycemia Ergocalciferol 25,000 unit 05/24/18 10:00 Vitamin D2 PO Fr [facility] Famotidine 10 mg 05/19/18 10:00 05/19/18 22:58 Pepcid PO 10 mg BID LEROY Administration Fluoxetine HCl 20 mg 05/19/18 10:00 05/19/18 10:30 Prozac PO 20 mg QDAY LEROY Administration Hydralazine HCl 10 mg 05/19/18 01:08 05/19/18 01:26 Apresoline IV 10 mg Q4HR PRN Administration Blood Pressure Sodium Chloride 1,000 mls @ 100 mls/hr 05/19/18 13:00 05/19/18 19:54 Nacl 0.45% 1000 Ml IV 100 mls/hr DIRECT LEROY Administration Insulin Human Regular 0 units 05/19/18 07:30 05/19/18 16:08 Humulin R SUB-Q Not Given AC [facility] Protocol Insulin Human Regular 0 units 05/19/18 22:00 05/19/18 22:58 Humulin R SUB-Q 3 units QHS LEROY Administration Protocol Ondansetron HCl 4 mg 05/18/18 22:05 05/19/18 01:26 Zofran IV 4 mg Q8H PRN Administration Nausea And Vomiting Prednisolone Acetate 1 drops 05/19/18 10:00 05/19/18 23:02 Pred Forte 1% OU 1 drops QID LEROY Administration Trazodone HCl 50 mg 05/19/18 22:00 05/19/18 22:58 Desyrel PO 50 mg QHS LEROY Administration
--- NOTE | 2018-05-20 10:36 | Vascular Lab Report ---
FINAL REPORT EXAM: VL ARTERIAL DUPLEX LE LT HISTORY: PAD TECHNIQUE: Stephens scale, color and pulsed Doppler ultrasound with color flow and spectral analysis carline luation of left lower extremity arteries were performed. PRIORS: None currently available. FINDINGS: LEFT EXTREMITY: Distal EIA, REGIONAL MARKETING DIRECTOR, proximal SFA, DFA, mid SFA, distal SFA, popliteal, CRIPPLE CHASER and LORNA velocities in cm/sec: 84, 88, 99, 92, 107, 50, 79, 37, and 17. Monophasic flow at the CRIPPLE CHASER and LORNA. Otherwise biphasic and triphasic flow in the remainder of the left lower extremity. Heterogeneous plaque throughout the left lower extremity. IMPRESSION: Hemodynamically significant stenosis suspected between the popliteal and the LORNA and CRIPPLE CHASER.
[2018-05-20] MEDS: PEPCID PO SCH ×2 (10:39→22:04)
[2018-05-20] MEDS: PLAVIX PO SCH (10:39)
[2018-05-20] MEDS: HALFPRIN EC PO SCH (10:39)
[2018-05-20] MEDS: PROzac PO SCH (10:39)
[2018-05-20] MEDS: PRED FORTE 1% OU SCH ×4 (10:42→22:18)
--- NOTE | 2018-05-20 13:16 | Consultation ---
History of Present Illness - Reason for Consult Consult date: 05/20/18 Elevated Vancomycin Level Requesting physician: GUILHERME SOTO - History of Present Illness The patient is a 73-year-old male with a past medical istory of Dementia, , coronary artery disease status post CABG, diabetes mellitus, hyperlipidemia, peripheral vascular disease that is known to ID. His recent admission on 04/15/18 and was noted to have hypotension, hypoxia and significant leukocytosis with concerns for sepsis and was admitted to the [facility]. Patient was noted to have left foot gangrene for which vascular surgery was consulted and the patient underwent a revascularization procedure on 04/18/2018. Blood cultures drawn on admission and grew MRSA, Left foot. wound cultures also grew MRSA. His sepsis was resolved and TTE and BARRON showed no vegetations with an EF of 40-45 %. Upon discharge he was set up receive Vancomycin 1g IV q day for 4 weeks ending 05/21/18. He was sent to the ED on 05/18/18 for elevated vancomycin trough levels that resulted at 38.4 , with a creatinine clearance of 3.0. He has been on Vancomycin therapy for approximately 3 weeks outpatient. On admission WBC 8.0, Creatinine 3.6, , Vancomycin Trough 24.8, Temperature 97.3, HR 87. Patient states that home antibiotic infusion was going well with the assistance of his son and cousin . Review of Systems: General: no fever, +chills, nightsweats, unintentional weight change, or change in appetite Cutaneous: no rash, pruritus Head: no headaches or injury Eyes: no changes in vision, eye pain, double vision Ears: no ear pain, ear discharge, ringing or hearing loss Nose: no nose bleeding, stuffiness Mouth & throat: no bleeding gums, no horseness, no dental problems, or swollen glands Neck: no pain, node enlargement/lumps, tyroid enlargement or tenderness Respiratory: no cough, wheezing, sputum, hemoptysis, pleuritic chest pain Cardiovascular: no chest pain, leg edema, cyanosis, ANDRES, orthopnea Musculoskeletal: no left foot pain or swelling Gastrointestinal: no nausea, vomiting, hematemesis, diarrhea, constipation, Genitourinary/Reproductive: no frequent urination, no dysuria, hematuria, incontinence Neurogical: no seizures, no headaches, no weakness, no paresthesias, no loss of speech or vision; no memory loss, no vertigo, no tremors, no numbness Psychiatric: stable mood; no excessive anxiety, sadness or moodiness Medications and Allergies Allergies Allergy/AdvReac Type Severity Reaction Status Date / Time No Known Allergies Allergy Verified 04/15/18 11:51 Home Medications Medication Instructions Recorded Confirmed Last Taken Type prednisoLONE ACETATE 1%(NF) [Pred 1 drops OP QID 01/07/13 05/18/18 Unknown History Forte 1%(Nf)] Ergocalciferol [Vitamin D2] 25,000 units PO 1XW 03/24/18 05/18/18 Unknown History FLUoxetine [PROzac] 20 mg PO QDAY 03/24/18 05/18/18 Unknown History AtorvaSTATin [Lipitor] 40 mg PO DAILY #30 tablet 03/27/18 05/18/18 Unknown Rx Ranitidine HCl [Acid Control] 150 mg PO BID #60 tablet 03/27/18 05/18/18 Unknown Rx Aspirin EC [Aspirin Enteric Coated 81 mg PO QDAY #30 tablet 04/26/18 05/18/18 Unknown Rx TAB] Clopidogrel [Plavix] 75 mg PO QDAY #30 tablet 04/26/18 05/18/18 Unknown Rx HYDROcodone/APAP 5-325 [[place] 1 each PO Q4HR PRN #30 tablet 04/26/18 05/18/18 Unknown Rx 5/325] Vancomycin 1,500 mg IV Q24H mg 04/26/18 05/18/18 Unknown Rx traZODone [Desyrel] 50 mg PO QHS #30 tablet 04/26/18 05/18/18 Unknown Rx Active Meds: Active Medications Acetaminophen (Tylenol) 650 mg PO Q4H PRN PRN Reason: Fever >101 Acetaminophen/Hydrocodone Bitart ([place] 5/325) 1 each PO Q4HR PRN PRN Reason: Pain Aspirin (Halfprin Ec) 81 mg PO QDAY [facility] Last Admin: 05/20/18 10:39 Dose: 81 mg Documented by: Atorvastatin Calcium (Lipitor) 40 mg PO DAILY [facility] Last Admin: 05/20/18 10:39 Dose: 40 mg Documented by: Clopidogrel Bisulfate (Plavix) 75 mg PO QDAY [facility] Last Admin: 05/20/18 10:39 Dose: 75 mg Documented by: Dextrose (D50w (25gm) Syringe) 50 ml IV PRN PRN PRN Reason: Hypoglycemia Ergocalciferol (Vitamin D2) 25,000 unit PO Fr [facility] Famotidine (Pepcid) 10 mg PO BID [facility] Last Admin: 05/20/18 10:39 Dose: 10 mg Documented by: Fluoxetine HCl (Prozac) 20 mg PO QDAY [facility] Last Admin: 05/20/18 10:39 Dose: 20 mg Documented by: Hydralazine HCl (Apresoline) 10 mg IV Q4HR PRN PRN Reason: Blood Pressure Last Admin: 05/19/18 01:26 Dose: 10 mg Documented by: Sodium Chloride (Nacl 0.45% 1000 Ml) 1,000 mls @ 100 mls/hr IV DIRECT [facility] Last Admin: 05/19/18 19:54 Dose: 100 mls/hr Documented by: Insulin Human Regular (Humulin R) 0 units SUB-Q AC [facility]; Protocol Last Admin: 05/19/18 16:08 Dose: Not Given Documented by: Insulin Human Regular (Humulin R) 0 units SUB-Q QHS [facility]; Protocol Last Admin: 05/19/18 22:58 Dose: 3 units Documented by: Ondansetron HCl (Zofran) 4 mg IV Q8H PRN PRN Reason: Nausea And Vomiting Last Admin: 05/19/18 01:26 Dose: 4 mg Documented by: Prednisolone Acetate (Pred Forte 1%) 1 drops OU QID [facility] Last Admin: 05/19/18 23:02 Dose: 1 drops Documented by: Trazodone HCl (Desyrel) 50 mg PO QHS [facility] Last Admin: 05/19/18 22:58 Dose: 50 mg Documented by: Physical Examination - Physical Exam Narrative exam: Constitutional: Alert, cooperative. No acute distress Head, Ears, Nose: Normocephalic, atraumatic. External ears, nose normal Eyes: Conjunctivae/corneas clear. No icterus. No ptosis. Neck: Supple, no meningeal signs Oral: dentition poor, no thrush Cardiovascular: S1, S2 normal. Respiratory: Good air entry, clear to auscultation bilaterally GI: Soft, non-tender; bowel sounds normal. No peritoneal signs Musculoskeletal: Escar noted on left plantar foot, dry, no odor or drainage, Skin: No rash or abscess. + right knee scab healed Hem/Lymphatic: No palpable cervical or supraclavicular nodes. No lymphangitis Psych: Mood ok. Affect normal Neurological: Awake, alert, oriented. - Constitutional Vitals: Vital Signs Temp Pulse Resp BP Pulse Ox 97.3 F L 89 18 123/98 96 05/20/18 04:38 05/20/18 04:36 05/20/18 04:38 05/20/18 04:36 05/20/18 04:36 Temperature -Last 24 Hours Temperature 97.3 F Temperature 98.4 F Temperature 98.9 F Temperature 98.0 F Results - Labs CBC & Chem 7: 05/20/18 01:18 05/20/18 01:18 Labs: Abnormal lab results 05/19/18 05/19/18 05/20/18 Range/Units 17:28 21:49 01:18 Hgb (11.8-15.2) gm/dl Hct (35.5-45.6) % [place] % (Auto) (0.0-7.3) % [place] # (0.0-0.8) K/mm3 BUN (9-20) mg/dL Creatinine (0.8-1.5) mg/dL Glucose (75-100) mg/dL POC Glucose 150 H 251 H (70-105) Hemoglobin A1c 7.8 H (4-6) % Calcium (8.4-10.2) mg/dL Albumin (3.9-5) g/dL 05/20/18 05/20/18 05/20/18 Range/Units 01:18 01:18 12:29 Hgb 11.0 L (11.8-15.2) gm/dl Hct 32.9 L (35.5-45.6) % [place] % (Auto) 11.2 H (0.0-7.3) % [place] # 1.0 H (0.0-0.8) K/mm3 BUN 35 H (9-20) mg/dL Creatinine 3.6 H (0.8-1.5) mg/dL Glucose 214 H (75-100) mg/dL POC Glucose 280 H (70-105) Hemoglobin A1c (4-6) % Calcium 8.2 L (8.4-10.2) mg/dL Albumin 2.6 L (3.9-5) g/dL Assessment and Plan Imaging 05/21/18 Duplex Scan Lower Extremity Artery: Hemodynamically significant stenosis suspected between the popliteal and the LORNA and METAL RIVETER. Previous Cultures: 04/15/2018 Blood: MRSA, resistant to penicillian and meropenem 04/18/2018 Blood: no growth after 5 days 04/23/2018 Left Foot: MRSA , reisistant to penicillian A/P: 73-year-old patient with a past medical history of Dementia, ,coronary artery disease status post CABG, diabetes mellitus, hyperlipidemia, peripheral vascular disease that is known to ID. His recent admission on 04/15/18 and was noted to have hypotension, hypoxia and significant leukocytosis with concerns for sepsis and was admitted to the [facility]. . Patient was noted to have left foot gangrene for which vascular surgery was consulted and the patient underwent a revascularization procedure on 04/18/2018. Blood cultures drawn on admission, grew MRSA, Left foot. wound cultures also grew MRSA. Upon discharge he was set up to receive Vancomycin 1g IV q day for 4 weeks ending 05/21/18, Now admitted with: 1. Vancomycin Toxcity: patient was discharged home on 04/26/18. Upon discharge he was set up to receive Vancomycin 1g IV q day for 4 weeks ending 05/21/18., for MRSA bacteremia and MRSA left foot He has been on vancomycin therapy for approximately 3 weeks at home.. Vanco trough levels were drawn at his Physicians office and resulted in a trough level of 38.4, Creatinine 3.0. Vancomycin random levels were drawn today 22.9. Vancomycin discontinued. 2. MRSA Bacteremia: from left foot gangrene, . Blood cultures showed clearance 04/18/18. Was being treated with Vancomycin, Currently off antibiotics 2. Left Diabetic Foot Ulcer: on exam Escar noted on left plantar foot, dry, no odor or drainage, Previous admission Left foot culture grew MRSA, resistant to penicillian. 3. DAHIANA: Most likely secondary to high vancomycin level. patient currently off antibiotics 4. Type 2 Diabetes Mellitus: uncontrolled, HBA1C 7.8, recommend strict glycemic control 5. PAD: s/p right above-knee amputation Plan: -Continue wound care -Monitor off antibiotics [facility] M: [phone] O:[phone]
--- NOTE | 2018-05-20 16:57 | Progress Note ---
Assessment and Plan - Left diabetic foot ulcer [facility] Wound cre physician Comments IV Zosyn, renal dose Continue IV vancomycin when the level returns to normal Check Lactic acid level Obtain Arterial Doppler left leg - Elevated vancomycin dose Patient was on home IV vancomycin. Serum level was found to be elevated for which he came to the hospital. Discussed with pharmacist. Vanc to be d/caitie tomorrow - Acute renal failure - resolved - Diabetes mellitus A1c - 5.9%, lipid level, urine microalbumin Issue with sliding scale insulin Consistent carbohydrate diet - Peripheral arterial disease status post right above-knee amputation Obtain arterial Doppler left leg - H/o CAD ASA, BB Subjective Date of service: 05/20/18 Principal diagnosis: infected wound on the left foot, sepsis Interval history: Patient evaluated in bed in no obvious distress. Remains afebrile Objective - Exam Narrative Exam: Constitutional: Well-nourished well-developed. In no distress Head: Normocephalic atraumatic Eyes: Pupils are equal round and reactive to light Nose: No enlarged turbinates, no septal deviation. Mouth: Moist mucous membranes. Neck: Supple no thyromegaly. No bruit. No JVD Heart: Regular rate and rhythm, S1-S2 normal. No rubs murmurs or gallop Lungs: Clear to auscultation bilaterally. no rales or rhonchi Abdomen: Soft, nontender. Bowel sound are present. Extremities: Right [id number] amputation. Left diabetic foot ulcer. Neuro: Alert oriented Oriented x3. No focal sensory or motor deficit. Skin: No rashes or hyperpigmented spots Musculoskeletal system: No joint pain or swelling Hematological: No petechia or subcutanous hemorrhages. Immunological: No multiple septic spots on the skin Lymphatic: No generalized lymphadenopathy Psychiatry: Euthymic. Calm. - Labs CBC & Chem 7: 05/20/18 01:18 05/20/18 01:18 Labs: Abnormal lab results 05/19/18 05/19/18 05/20/18 Range/Units 17:28 21:49 01:18 Hgb (11.8-15.2) gm/dl Hct (35.5-45.6) % [place] % (Auto) (0.0-7.3) % [place] # (0.0-0.8) K/mm3 BUN (9-20) mg/dL Creatinine (0.8-1.5) mg/dL Glucose (75-100) mg/dL POC Glucose 150 H 251 H (70-105) Hemoglobin A1c 7.8 H (4-6) % Calcium (8.4-10.2) mg/dL Albumin (3.9-5) g/dL 05/20/18 05/20/18 05/20/18 Range/Units 01:18 01:18 12:29 Hgb 11.0 L (11.8-15.2) gm/dl Hct 32.9 L (35.5-45.6) % [place] % (Auto) 11.2 H (0.0-7.3) % [place] # 1.0 H (0.0-0.8) K/mm3 BUN 35 H (9-20) mg/dL Creatinine 3.6 H (0.8-1.5) mg/dL Glucose 214 H (75-100) mg/dL POC Glucose 280 H (70-105) Hemoglobin A1c (4-6) % Calcium 8.2 L (8.4-10.2) mg/dL Albumin 2.6 L (3.9-5) g/dL
--- NOTE | 2018-05-20 17:23 | Consultation ---
History of Present Illness - Reason for Consult Consult date: 05/20/18 PVD with nonhealing ulcers to left foot Requesting physician: HERMES BO - History of Present Illness This patient is a 73-year-old male that was admitted via the emergency room on 05/18/2018 due to altered mental status. He was recently hospitalized at [facility]. He was noted to have peripheral arterial disease with ulceration to his left lower extremity. He underwent a percutaneous revascularization procedure during that admission (atherectomy and angioplasty with drug-coated balloons of the left femoral popliteal artery; left tibioperoneal trunk; and left posterior tibial artery). He subsequently had a bedside operative debridement of the wounds to his left foot by the wound care surgeons. He was discharged home on intravenous antibiotics. He apparently inadvertently pulled out his PICC line over the last few days. His condition apparently deteriorated thus prompting him to go to the emergency room where he has since been evaluated and admitted. He has dry ulcerations to his left foot. An arterial duplex was ordered, and a vascular surgery consult has been requested to further evaluate. His outpt care is supplied by [facility]. He denies follow up with the wound care clinic. Past History Past Medical History: CAD, diabetes, hypertension, hyperlipidemia, other (dementia) Past Surgical History: CABG, total hip replacement, Other (Pacemaker, RLE BKA, above stated perc revasc Apr 2018) Social history: denies: smoking (h/o Tobacco use), alcohol abuse Family history: CAD, diabetes, hypertension Medications and Allergies Allergies Allergy/AdvReac Type Severity Reaction Status Date / Time No Known Allergies Allergy Verified 04/15/18 11:51 Home Medications Medication Instructions Recorded Confirmed Last Taken Type prednisoLONE ACETATE 1%(NF) [Pred 1 drops OP QID 01/07/13 05/18/18 Unknown History Forte 1%(Nf)] Ergocalciferol [Vitamin D2] 25,000 units PO 1XW 03/24/18 05/18/18 Unknown History FLUoxetine [PROzac] 20 mg PO QDAY 03/24/18 05/18/18 Unknown History AtorvaSTATin [Lipitor] 40 mg PO DAILY #30 tablet 03/27/18 05/18/18 Unknown Rx Ranitidine HCl [Acid Control] 150 mg PO BID #60 tablet 03/27/18 05/18/18 Unknown Rx Aspirin EC [Aspirin Enteric Coated 81 mg PO QDAY #30 tablet 04/26/18 05/18/18 Unknown Rx TAB] Clopidogrel [Plavix] 75 mg PO QDAY #30 tablet 04/26/18 05/18/18 Unknown Rx HYDROcodone/APAP 5-325 [[place] 1 each PO Q4HR PRN #30 tablet 04/26/18 05/18/18 Unknown Rx 5/325] Vancomycin 1,500 mg IV Q24H mg 04/26/18 05/18/18 Unknown Rx traZODone [Desyrel] 50 mg PO QHS #30 tablet 04/26/18 05/18/18 Unknown Rx Active Meds: Active Medications Acetaminophen (Tylenol) 650 mg PO Q4H PRN PRN Reason: Fever >101 Acetaminophen/Hydrocodone Bitart ([place] 5/325) 1 each PO Q4HR PRN PRN Reason: Pain Aspirin (Halfprin Ec) 81 mg PO QDAY [facility] Last Admin: 05/20/18 10:39 Dose: 81 mg Documented by: Atorvastatin Calcium (Lipitor) 40 mg PO DAILY [facility] Last Admin: 05/20/18 10:39 Dose: 40 mg Documented by: Clopidogrel Bisulfate (Plavix) 75 mg PO QDAY [facility] Last Admin: 05/20/18 10:39 Dose: 75 mg Documented by: Dextrose (D50w (25gm) Syringe) 50 ml IV PRN PRN PRN Reason: Hypoglycemia Ergocalciferol (Vitamin D2) 25,000 unit PO [facility] Famotidine (Pepcid) 10 mg PO BID [facility] Last Admin: 05/20/18 10:39 Dose: 10 mg Documented by: Fluoxetine HCl (Prozac) 20 mg PO QDAY [facility] Last Admin: 05/20/18 10:39 Dose: 20 mg Documented by: Hydralazine HCl (Apresoline) 10 mg IV Q4HR PRN PRN Reason: Blood Pressure Last Admin: 05/19/18 01:26 Dose: 10 mg Documented by: Sodium Chloride (Nacl 0.45% 1000 Ml) 1,000 mls @ 100 mls/hr IV DIRECT [facility] Last Admin: 05/19/18 19:54 Dose: 100 mls/hr Documented by: Insulin Human Regular (Humulin R) 0 units SUB-Q [facility]; Protocol Last Admin: 05/19/18 16:08 Dose: Not Given Documented by: Insulin Human Regular (Humulin R) 0 units SUB-Q QHS [facility]; Protocol Last Admin: 05/19/18 22:58 Dose: 3 units Documented by: Ondansetron HCl (Zofran) 4 mg IV Q8H PRN PRN Reason: Nausea And Vomiting Last Admin: 05/19/18 01:26 Dose: 4 mg Documented by: Prednisolone Acetate (Pred Forte 1%) 1 drops OU QID [facility] Last Admin: 05/19/18 23:02 Dose: 1 drops Documented by: Trazodone HCl (Desyrel) 50 mg PO QHS [facility] Last Admin: 05/19/18 22:58 Dose: 50 mg Documented by: Review of Systems All systems: negative Exam - Constitutional Vitals: Temp Pulse Resp BP Pulse Ox 97.3 F L 89 18 123/98 96 05/20/18 04:38 05/20/18 04:36 05/20/18 04:38 05/20/18 04:36 05/20/18 04:36 General appearance: Present: no acute distress - EENT Eyes: Present: EOM intact ENT: hearing intact - Neck Neck: Present: supple - Respiratory Respiratory effort: normal - Extremities Extremities: normal temperature, abnormal (RLE BKA well healed, LLE with dry ulcerations to L foot. Scattered excoriations to the left leg. No erythema or drainage) - Psychiatric Psychiatric: appropriate mood/affect, cooperative - Neurologic Neurologic: no focal deficits Results - Labs CBC & Chem 7: 05/20/18 01:18 05/20/18 01:18 Labs: Abnormal lab results 05/19/18 05/19/18 05/20/18 Range/Units 17:28 21:49 01:18 Hgb (11.8-15.2) gm/dl Hct (35.5-45.6) % [place] % (Auto) (0.0-7.3) % [place] # (0.0-0.8) K/mm3 BUN (9-20) mg/dL Creatinine (0.8-1.5) mg/dL Glucose (75-100) mg/dL POC Glucose 150 H 251 H (70-105) Hemoglobin A1c 7.8 H (4-6) % Calcium (8.4-10.2) mg/dL Albumin (3.9-5) g/dL 05/20/18 05/20/18 05/20/18 Range/Units 01:18 01:18 12:29 Hgb 11.0 L (11.8-15.2) gm/dl Hct 32.9 L (35.5-45.6) % [place] % (Auto) 11.2 H (0.0-7.3) % [place] # 1.0 H (0.0-0.8) K/mm3 BUN 35 H (9-20) mg/dL Creatinine 3.6 H (0.8-1.5) mg/dL Glucose 214 H (75-100) mg/dL POC Glucose 280 H (70-105) Hemoglobin A1c (4-6) % Calcium 8.2 L (8.4-10.2) mg/dL Albumin 2.6 L (3.9-5) g/dL Assessment and Plan This patient has a history of peripheral arterial disease with ulceration to his left lower extremity. He was recently revascularized by percutaneous atherectomy/angioplasty (using drug coated balloons) to his left lower extremity and April 2018. A limited ultrasound was ordered. This did not include toe pressures. We will recheck this study. He may need additional intervention to promote wound healing, though this may need to be delayed given that he is currently in acute renal failure. Continue to offload pressure, medically optimized patient, promote good local wound care. Recommend consultation with the wound care nurse. - Patient Problems (1) Atherosclerosis of [place] arteries of the extremities with ulceration Current Visit: Yes Status: Acute (2) ARF (acute renal failure) with tubular necrosis Current Visit: No Status: Acute (3) Altered mental status Current Visit: No Status: Acute (4) Diabetes Current Visit: No Status: Acute (5) HTN (hypertension) Current Visit: No Status: Acute (6) CAD (coronary artery disease) Current Visit: No Status: Chronic (7) Hyperlipidemia Current Visit: No Status: Chronic (8) Altered mental status Onset Date: 01/15/13 Current Visit: No Status: Resolved
[2018-05-20] MEDS: DESYREL PO SCH (22:04)
[2018-05-20] MEDS: NACL 0.45% 1000 ML 1,000 ML IV SCH (22:19)
[2018-05-21] MEDS: NACL 0.45% 1000 ML 1,000 ML IV SCH ×2 (07:57→17:11)
[2018-05-21] MEDS: HumuLIN R SUB-Q SCH ×5 (08:16→21:47)
[2018-05-21 08:29] LABS: Calcium 8.3 mg/dL (8.4-10.2)
--- NOTE | 2018-05-21 09:42 | Progress Note ---
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 he has ATN due to vancomycin toxicity follow up daily random vanco levels, 18 today and improving continue gentle ivfs strict i/os, avoid nephrotoxins optimized meds for htn and dm -sp bedside debridement of left foot by GS on 04/23/18, cont wound care - sp revasc of LLE by luz saldaña on 04/18/18 Subjective Date of service: 05/21/18 Principal diagnosis: infected wound on the left foot, sepsis Interval history: resting well in bed today Objective - Exam Narrative Exam: - General Limitations: No Limitations General appearance: alert, in no apparent distress - Head Head exam: Present: atraumatic, normocephalic - Eye Eye exam: Present: normal appearance - ENT ENT exam: Present: mucous membranes moist - Neck Neck exam: Present: normal inspection - Respiratory Respiratory exam: Present: normal lung sounds bilaterally. Absent: respiratory distress - Cardiovascular Cardiovascular Exam: Present: regular rate, normal rhythm - GI/Abdominal GI/Abdominal exam: Present: soft. Absent: distended - Extremities Exam Extremities exam: Present: other (right AKA present; dark discoloration to plan tar aspect of left foot) - Neurological Exam Neurological exam: Present: alert, altered (baseline, hx of dementia) - Psychiatric Psychiatric exam: Present: normal affect, normal mood - Skin Skin exam: Present: warm, dry, intact, normal color. Absent: rash - Vital Signs Vital signs: Vital Signs - 12hr 05/20/18 05/21/18 05/21/18 23:58 03:22 07:55 Temperature 98.2 F 98.1 F 97.5 F L Pulse Rate 81 82 96 H Respiratory 18 18 18 Rate Blood Pressure 155/103 151/92 155/96 O2 Sat by Pulse 95 95 97 Oximetry - Lab 05/20/18 01:18 05/21/18 06:03 Most recent lab results Calcium 8.3 mg/dL (8.4-10.2) L 05/21/18 06:03 Medications & Allergies - Medications Allergies/Adverse Reactions: Allergies No Known Allergies Allergy (Verified 04/15/18 11:51) Home Medications: Home Medications Medication Instructions Recorded Confirmed Last Taken Type prednisoLONE ACETATE 1%(NF) [Pred 1 drops OP QID 01/07/13 05/18/18 Unknown History Forte 1%(Nf)] Ergocalciferol [Vitamin D2] 25,000 units PO 1XW 03/24/18 05/18/18 Unknown History FLUoxetine [PROzac] 20 mg PO QDAY 03/24/18 05/18/18 Unknown History AtorvaSTATin [Lipitor] 40 mg PO DAILY #30 tablet 03/27/18 05/18/18 Unknown Rx Ranitidine HCl [Acid Control] 150 mg PO BID #60 tablet 03/27/18 05/18/18 Unknown Rx Aspirin EC [Aspirin Enteric Coated 81 mg PO QDAY #30 tablet 04/26/18 05/18/18 Unknown Rx TAB] Clopidogrel [Plavix] 75 mg PO QDAY #30 tablet 04/26/18 05/18/18 Unknown Rx HYDROcodone/APAP 5-325 [[place] 1 each PO Q4HR PRN #30 tablet 04/26/18 05/18/18 Unknown Rx 5/325] Vancomycin 1,500 mg IV Q24H mg 04/26/18 05/18/18 Unknown Rx traZODone [Desyrel] 50 mg PO QHS #30 tablet 04/26/18 05/18/18 Unknown Rx Active Medications: Generic Name Dose Route Start Last Admin Trade Name Freq PRN Reason Stop Dose Admin Acetaminophen 650 mg 05/18/18 22:05 Tylenol PO Q4H PRN Fever >101 Acetaminophen/Hydrocodone Bitart 1 each 05/18/18 22:09 [place] 5/325 PO Q4HR PRN Pain Aspirin 81 mg 05/19/18 10:00 05/20/18 10:39 Halfprin Ec PO 81 mg QDAY [facility] Administration Atorvastatin Calcium 40 mg 05/19/18 10:00 05/20/18 10:39 Lipitor PO 40 mg DAILY [facility] Administration Clopidogrel Bisulfate 75 mg 05/19/18 10:00 05/20/18 10:39 Plavix PO 75 mg QDAY [facility] Administration Dextrose 50 ml 05/18/18 22:06 D50w (25gm) Syringe IV PRN PRN Hypoglycemia Ergocalciferol 25,000 unit 05/24/18 10:00 Vitamin D2 PO Fr [facility] Famotidine 10 mg 05/19/18 10:00 05/20/18 22:04 Pepcid PO 10 mg BID [facility] Administration Fluoxetine HCl 20 mg 05/19/18 10:00 05/20/18 10:39 Prozac PO 20 mg QDAY [facility] Administration Hydralazine HCl 10 mg 05/19/18 01:08 05/19/18 01:26 Apresoline IV 10 mg Q4HR PRN Administration Blood Pressure Sodium Chloride 1,000 mls @ 100 mls/hr 05/19/18 13:00 05/21/18 07:57 Nacl 0.45% 1000 Ml IV 100 mls/hr DIRECT [facility] Administration Insulin Human Regular 0 units 05/19/18 07:30 05/21/18 08:16 Humulin R SUB-Q 1 units AC [facility] Administration Protocol Insulin Human Regular 0 units 05/19/18 22:00 05/20/18 22:16 Humulin R SUB-Q 2 units QHS [facility] Administration Protocol Ondansetron HCl 4 mg 05/18/18 22:05 05/19/18 01:26 Zofran IV 4 mg Q8H PRN Administration Nausea And Vomiting Prednisolone Acetate 1 drops 05/19/18 10:00 05/20/18 22:18 Pred Forte 1% OU 1 drops QID [facility] Administration Trazodone HCl 50 mg 05/19/18 22:00 05/20/18 22:04 Desyrel PO 50 mg QHS [facility] Administration
[2018-05-21] MEDS: PROzac PO SCH (10:17)
[2018-05-21] MEDS: PEPCID PO SCH ×2 (10:17→21:50)
[2018-05-21] MEDS: PLAVIX PO SCH (10:17)
[2018-05-21] MEDS: HALFPRIN EC PO SCH (10:17)
[2018-05-21] MEDS: PRED FORTE 1% OU SCH ×5 (10:17→21:56)
--- NOTE | 2018-05-21 10:24 | Progress Note ---
Assessment and Plan Imaging 05/21/18 Duplex Scan Lower Extremity Artery: Hemodynamically significant stenosis suspected between the popliteal and the LORNA and [employer]. Previous Cultures: 04/15/2018 Blood: MRSA, resistant to penicillian and meropenem 04/18/2018 Blood: no growth after 5 days 04/23/2018 Left Foot: MRSA , resistant to penicillian A/P: 73-year-old patient with a past medical history of Dementia, ,coronary artery disease status post CABG, diabetes mellitus, hyperlipidemia, peripheral vascular disease that is known to ID. His recent admission on 04/15/18 and was noted to have hypotension, hypoxia and significant leukocytosis with concerns for sepsis and was admitted to the [facility]. . Patient was noted to have left foot gangrene for which vascular surgery was consulted and the patient underwent a revascularization procedure on 04/18/2018. Blood cultures drawn on admission, grew MRSA, Left foot. wound cultures also grew MRSA. Upon discharge he was set up to receive Vancomycin 1g IV q day for 4 weeks ending 05/21/18, Now admitted with: 1. Vancomycin Toxcity: patient was discharged home on 04/26/18. Upon discharge he was set up to receive Vancomycin 1g IV q day for 4 weeks ending 05/21/18., for MRSA bacteremia and MRSA left foot He has been on vancomycin therapy for approximately 3 weeks at home.. Vanco trough levels were drawn at his Physicians office and resulted in a trough level of 38.4, Creatinine 3.0. Vancomycin random levels improving. 2. MRSA Bacteremia: from left foot gangrene, . Blood cultures showed clearance 04/18/18. Was being treated with Vancomycin, Currently off antibiotics 2. Left Diabetic Foot Ulcer: on exam Escar noted on left plantar foot, dry, no odor or drainage, Previous admission Left foot culture grew MRSA, resistant to penicillian. 3. DAHIANA: Most likely secondary to high vancomycin level. patient currently off antibiotics 4. Type 2 Diabetes Mellitus: uncontrolled, HBA1C 7.8, recommend strict glycemic control 5. PAD: s/p right above-knee amputation Plan: -Continue wound care -Monitor off antibiotics [facility] M: [phone] O:[phone] Subjective Date of service: 05/21/18 Principal diagnosis: infected wound on the left foot, sepsis Interval history: Patient seen and examined. Stated that he was feeling good today and was ready to go home. No SOB, pain or fevers. Objective - Exam Narrative Exam: Constitutional: Alert, cooperative. No acute distress Head, Ears, Nose: Normocephalic, atraumatic. External ears, nose normal Eyes: Conjunctivae/corneas clear. No icterus. No ptosis. Neck: Supple, no meningeal signs Oral: dentition poor, no thrush Cardiovascular: S1, S2 normal. Respiratory: Good air entry, clear to auscultation bilaterally GI: Soft, non-tender; bowel sounds normal. No peritoneal signs Musculoskeletal: Escar noted on left plantar foot, dry, no odor or drainage, Skin: No rash or abscess. + right knee scab healed Hem/Lymphatic: No palpable cervical or supraclavicular nodes. No lymphangitis Psych: Mood ok. Affect normal Neurological: Awake, alert, oriented. - Constitutional Vitals: Vital Signs Temp Pulse Resp BP Pulse Ox 97.5 F L 96 H 18 155/96 97 05/21/18 07:55 05/21/18 07:55 05/21/18 07:55 05/21/18 07:55 05/21/18 07:55 Temperature -Last 24 Hours Temperature 97.5 F Temperature 98.1 F Temperature 98.2 F Temperature 98.4 F - Labs CBC & Chem 7: 05/20/18 01:18 05/21/18 06:03 Labs: Abnormal lab results 05/20/18 05/20/18 05/20/18 Range/Units 12:29 17:36 22:08 BUN (9-20) mg/dL Creatinine (0.8-1.5) mg/dL Glucose (75-100) mg/dL POC Glucose 280 H 236 H 222 H (70-105) Calcium (8.4-10.2) mg/dL 05/21/18 05/21/18 Range/Units 06:03 06:04 BUN 33 H (9-20) mg/dL Creatinine 3.1 H (0.8-1.5) mg/dL Glucose 160 H (75-100) mg/dL POC Glucose 159 H (70-105) Calcium 8.3 L (8.4-10.2) mg/dL
--- NOTE | 2018-05-21 12:19 | Event Note ---
Date: 05/21/18 Pt sleeping, but awoke easily. Without complaint at present. Await additional vascular lab study. Further recommendation based upon this study, though further arterial intervention likely on hold for now given ARF.
--- NOTE | 2018-05-21 13:27 | Progress Note ---
Assessment and Plan Assessment and plan: Vancomycin toxicity -off vanc -Level trended down ATN 2/2 vancomycin toxicity -levels improving -nephrology following H/O MRSA bacteremia 2/2 Left foot gangrene -cont wound care -off antibiotics DM2 with hyperglycemia -on SSI, Lantus added Peripheral arterial disease status post right above-knee amputation -on asa and plavix -arterial Doppler left leg showed significant stenosis -vascular recommended surgical intervention when his ARF resolves H/o CAD, stable -cont home meds HTN -uncontrolled, coreg added Disp: For d/c when cleared by nephrology History Interval history: Pt has no new complaints Hospitalist Physical - Constitutional Vitals: Temp Pulse Resp BP Pulse Ox 97.5 F L 96 H 18 155/96 97 05/21/18 07:55 05/21/18 07:55 05/21/18 07:55 05/21/18 07:55 05/21/18 07:55 General appearance: Present: no acute distress - EENT Eyes: Present: PERRL, EOM intact - Neck Neck: Present: supple, normal ROM - Respiratory Respiratory effort: normal Respiratory: bilateral: CTA - Cardiovascular Rhythm: regular Heart Sounds: Present: S1 & S2 - Extremities Extremity abnormal: other (RT BKA. Ulcers noted on the plantar surface of LT foot) - Abdominal General gastrointestinal: soft, non-tender, normal bowel sounds - Neurologic Neurologic: CNII-XII intact Results - Labs CBC & Chem 7: 05/20/18 01:18 05/21/18 06:03 Labs: Laboratory Last Values WBC 8.5 K/mm3 (4.5-11.0) 05/20/18 01:18 RBC 3.84 M/mm3 (3.65-5.03) 05/20/18 01:18 Hgb 11.0 gm/dl (11.8-15.2) L 05/20/18 01:18 Hct 32.9 % (35.5-45.6) L 05/20/18 01:18 MCV 86 fl (84-94) 05/20/18 01:18 MCH 29 pg (28-32) 05/20/18 01:18 MCHC 34 % (32-34) 05/20/18 01:18 RDW 14.7 % (13.2-15.2) 05/20/18 01:18 Plt Count 216 K/mm3 (140-440) 05/20/18 01:18 Lymph % (Auto) 15.1 % (13.4-35.0) 05/20/18 01:18 [place] % (Auto) 11.2 % (0.0-7.3) H 05/20/18 01:18 Eos % (Auto) 3.6 % (0.0-4.3) 05/20/18 01:18 Baso % (Auto) 0.7 % (0.0-1.8) 05/20/18 01:18 Lymph # 1.3 K/mm3 (1.2-5.4) 05/20/18 01:18 [place] # 1.0 K/mm3 (0.0-0.8) H 05/20/18 01:18 Eos # 0.3 K/mm3 (0.0-0.4) 05/20/18 01:18 Baso # 0.1 K/mm3 (0.0-0.1) 05/20/18 01:18 Seg Neutrophils % 69.4 % (40.0-70.0) 05/20/18 01:18 Seg Neutrophils # 5.9 K/mm3 (1.8-7.7) 05/20/18 01:18 Sodium 140 mmol/L (137-145) 05/21/18 06:03 Potassium 4.4 mmol/L (3.6-5.0) 05/21/18 06:03 Chloride 101.6 mmol/L (98-107) 05/21/18 06:03 Carbon Dioxide 25 mmol/L (22-30) 05/21/18 06:03 Anion Gap 18 mmol/L 05/21/18 06:03 BUN 33 mg/dL (9-20) H 05/21/18 06:03 Creatinine 3.1 mg/dL (0.8-1.5) H 05/21/18 06:03 Estimated GFR 20 ml/min 05/21/18 06:03 BUN/Creatinine Ratio 11 % 05/21/18 06:03 Glucose 160 mg/dL (75-100) H 05/21/18 06:03 POC Glucose 274 (70-105) H 05/21/18 12:33 Hemoglobin A1c 7.8 % (4-6) H 05/20/18 01:18 Lactic Acid 1.00 mmol/L (0.7-2.0) 05/21/18 06:03 Calcium 8.3 mg/dL (8.4-10.2) L 05/21/18 06:03 Total Bilirubin 0.20 mg/dL (0.1-1.2) 05/20/18 01:18 AST 14 units/L (5-40) 05/20/18 01:18 ALT 8 units/L (7-56) 05/20/18 01:18 Alkaline Phosphatase 107 units/L (35-129) 05/20/18 01:18 Total Protein 6.6 g/dL (6.3-8.2) 05/20/18 01:18 Albumin 2.6 g/dL (3.9-5) L 05/20/18 01:18 Albumin/Globulin Ratio 0.7 % 05/20/18 01:18 Triglycerides 86 mg/dL (2-149) 05/20/18 01:18 Cholesterol 108 mg/dL (50-199) 05/20/18 01:18 LDL Cholesterol Direct 51 mg/dL (50-130) 05/20/18 01:18 HDL Cholesterol 42 mg/dL (40-59) 05/20/18 01:18 Cholesterol/HDL Ratio 2.57 % 05/20/18 01:18 Urine Color Yellow (Yellow) 05/18/18 19: Urine Turbidity Clear (Clear) 05/18/18 19: Urine pH 6.0 (5.0-7.0) 05/18/18 19: Ur Specific [place] 1.011 (1.003-1.030) 05/18/18 19: Urine Protein >500 mg/dL (Negative) 05/18/18 19: Urine Glucose (UA) 150 mg/dL (Negative) 05/18/18 19: Urine Ketones Neg mg/dL (Negative) 05/18/18 19: Urine Blood Mod (Negative) 05/18/18: Urine Nitrite Neg (Negative) 05/18/18 19: Urine Bilirubin Neg (Negative) 05/18/18 19: Urine Urobilinogen < 2.0 mg/dL (<2.0) 05/18/18 19: Ur Leukocyte Esterase Neg (Negative) 05/18/18 19: Urine WBC (Auto) 5.0 /HPF (0.0-6.0) 05/18/18 19:29 Urine RBC (Auto) > 182.0 /HPF (0.0-6.0) 05/18/18 19:29 U Epithel Cells (Auto) 1.0 /HPF (0-13.0) 05/18/18 19:29 Urine Bacteria (Auto) 1+ /HPF (Negative) 05/18/18 19:29 Urine Mucus Few /HPF 05/18/18 19:29 Vancomycin Trough 24.8 ug/mL (5.0-20.0) H 05/19/18 00:05 Random Vancomycin 18.2 ug/mL (0-40.0) 05/21/18 06:03 Nutrition/Malnutrition Assess - Dietary Evaluation Nutrition/Malnutrition Findings: Nutrition Notes Start: 05/19/18 14:15 Freq: Status: Active Protocol: Document 05/19/18 14:15 RM (Rec: 05/19/18 14:16 RM [id number]) Nutrition Notes Need for Assessment generated from: field reimbursement manager Initial or Follow up Brief Note Current Diagnosis Acute Kidney Injury Coronary Artery Disease Diabetes Hypertension Subjective/Other Information Screened for new onset DM diet education. Pt already familiar with diet. Nutrition Intervention Revisit per MD consult or patient Sign Off request:
[2018-05-21] MEDS ORDERED: LANTUS SUB-Q ONE (13:28)
[2018-05-21] MEDS: COREG PO SCH ×2 (14:09→21:50)
[2018-05-21] MEDS: DESYREL PO SCH (21:50)
[2018-05-21] MEDS ORDERED: LANTUS SUB-Q SCH (22:00)
[2018-05-22] MEDS: NACL 0.45% 1000 ML 1,000 ML IV SCH (05:14)
[2018-05-22 05:53] LABS: Calcium 7.9 mg/dL (8.4-10.2)
[2018-05-22] MEDS: HumuLIN R SUB-Q SCH ×3 (07:24→18:00)
[2018-05-22] MEDS: PRED FORTE 1% OU SCH ×3 (10:00→19:44)
--- NOTE | 2018-05-22 12:51 | Progress Note ---
Assessment and Plan Impression: DAHIANA due to ATN Vancomycin toxicity severe Sepsis MRSA UTI HTN left foot wound with eschar and area of fluctuance, POA unstageable pressure ulcer Acute resp failure with hypoxia, resolved PAD of LLE Plan cr noted, better today, no indication for ceo he has ATN due to vancomycin toxicity follow up daily random vanco levels, 14 today and improving continue gentle ivfs strict i/os, avoid nephrotoxins optimized meds for htn and dm -sp bedside debridement of left foot by GS on 04/23/18, cont wound care - sp revasc of LLE by luz saldaña on 04/18/18 ok to dc from renal standpoint Subjective Date of service: 05/22/18 Principal diagnosis: infected wound on the left foot, sepsis Interval history: resting well in bed today Objective - Exam Narrative Exam: - General Limitations: No Limitations General appearance: alert, in no apparent distress - Head Head exam: Present: atraumatic, normocephalic - Eye Eye exam: Present: normal appearance - ENT ENT exam: Present: mucous membranes moist - Neck Neck exam: Present: normal inspection - Respiratory Respiratory exam: Present: normal lung sounds bilaterally. Absent: respiratory distress - Cardiovascular Cardiovascular Exam: Present: regular rate, normal rhythm - GI/Abdominal GI/Abdominal exam: Present: soft. Absent: distended - Extremities Exam Extremities exam: Present: other (right AKA present; dark discoloration to plantar aspect of left foot) - Neurological Exam Neurological exam: Present: alert, altered (baseline, hx of dementia) - Psychiatric Psychiatric exam: Present: normal affect, normal mood - Skin Skin exam: Present: warm, dry, intact, normal color. Absent: rash - Vital Signs Vital signs: Vital Signs - 12hr 05/22/18 05/22/18 04:55 09:06 Temperature 98.1 F 98.1 F Pulse Rate 66 69 Respiratory 18 18 Rate Blood Pressure 139/65 143/78 O2 Sat by Pulse 97 98 Oximetry - Lab 05/20/18 01:18 05/22/18 05:06 Most recent lab results Calcium 7.9 mg/dL (8.4-10.2) L 05/22/18 05:06 Medications & Allergies - Medications Allergies/Adverse Reactions: Allergies No Known Allergies Allergy (Verified 04/15/18 11:51) Home Medications: Home Medications Medication Instructions Recorded Confirmed Last Taken Type prednisoLONE ACETATE 1%(NF) [Pred 1 drops OP QID 01/07/13 05/18/18 Unknown History Forte 1%(Nf)] Ergocalciferol [Vitamin D2] 25,000 units PO 1XW 03/24/18 05/18/18 Unknown History FLUoxetine [PROzac] 20 mg PO QDAY 03/24/18 05/18/18 Unknown History AtorvaSTATin [Lipitor] 40 mg PO DAILY #30 tablet 03/27/18 05/18/18 Unknown Rx Ranitidine HCl [Acid Control] 150 mg PO BID #60 tablet 03/27/18 05/18/18 Unknown Rx Aspirin EC [Aspirin Enteric Coated 81 mg PO QDAY #30 tablet 04/26/18 05/18/18 Unknown Rx TAB] Clopidogrel [Plavix] 75 mg PO QDAY #30 tablet 04/26/18 05/18/18 Unknown Rx HYDROcodone/APAP 5-325 [[place] 1 each PO Q4HR PRN #30 tablet 04/26/18 05/18/18 Unknown Rx 5/325] Vancomycin 1,500 mg IV Q24H mg 04/26/18 05/18/18 Unknown Rx traZODone [Desyrel] 50 mg PO QHS #30 tablet 04/26/18 05/18/18 Unknown Rx Active Medications: Generic Name Dose Route Start Last Admin Trade Name Freq PRN Reason Stop Dose Admin Acetaminophen 650 mg 05/18/18 22:05 Tylenol PO Q4H PRN Fever >101 Acetaminophen/Hydrocodone Bitart 1 each 05/18/18 22:09 [place] 5/325 PO Q4HR PRN Pain Aspirin 81 mg 05/19/18 10:00 05/21/18 10:17 Halfprin Ec PO 81 mg QDAY LEROY Administration Atorvastatin Calcium 40 mg 05/19/18 10:00 05/21/18 10:17 Lipitor PO 40 mg DAILY LEROY Administration Carvedilol 25 mg 05/21/18 14:00 05/21/18 21:50 Coreg PO 25 mg BID LEROY Administration Clopidogrel Bisulfate 75 mg 05/19/18 10:00 05/21/18 10:17 Plavix PO 75 mg QDAY LEROY Administration Dextrose 50 ml 05/18/18 22:06 D50w (25gm) Syringe IV PRN PRN Hypoglycemia Ergocalciferol 25,000 unit 05/24/18 10:00 Vitamin D2 PO Fr LEROY Famotidine 10 mg 05/19/18 10:00 05/21/18 21:50 Pepcid PO 10 mg BID LEROY Administration Fluoxetine HCl 20 mg 05/19/18 10:00 05/21/18 10:17 Prozac PO 20 mg QDAY LEROY Administration Hydralazine HCl 10 mg 05/19/18 01:08 05/19/18 01:26 Apresoline IV 10 mg Q4HR PRN Administration Blood Pressure Sodium Chloride 1,000 mls @ 100 mls/hr 05/19/18 13:00 05/22/18 05:14 Nacl 0.45% 1000 Ml IV 100 mls/hr DIRECT LEROY Administration Insulin Glargine 15 units 05/21/18 22:00 05/21/18 21:51 Lantus SUB-Q Not Given QHS [facility] Insulin Human Regular 0 units 05/19/18 07:30 05/21/18 18:30 Humulin R SUB-Q 1 units AC [facility] Administration Protocol Insulin Human Regular 0 units 05/19/18 22:00 05/21/18 21:47 Humulin R SUB-Q Not Given QHS [facility] Protocol Ondansetron HCl 4 mg 05/18/18 22:05 05/19/18 01:26 Zofran IV 4 mg Q8H PRN Administration Nausea And Vomiting Prednisolone Acetate 1 drops 05/19/18 10:00 05/21/18 21:56 Pred Forte 1% OU 1 drops QID [facility] Administration Trazodone HCl 50 mg 05/19/18 22:00 05/21/18 21:50 Desyrel PO 50 mg QHS [facility] Administration
[2018-05-22] MEDS: PROzac PO SCH (13:17)
[2018-05-22] MEDS: HALFPRIN EC PO SCH (13:19)
[2018-05-22] MEDS: PEPCID PO SCH (13:19)
[2018-05-22] MEDS: PLAVIX PO SCH (13:19)
[2018-05-22] MEDS: COREG PO SCH (13:21)
[2018-05-22 13:23] VITALS: BP 118/74
--- NOTE | 2018-05-22 13:33 | Progress Note ---
Assessment and Plan Imaging 05/21/18 Duplex Scan Lower Extremity Artery: Hemodynamically significant stenosis suspected between the popliteal and the LORNA and [employer]. Previous Cultures: 04/15/2018 Blood: MRSA, resistant to penicillian and meropenem 04/18/2018 Blood: no growth after 5 days 04/23/2018 Left Foot: MRSA , resistant to penicillian A/P: 73-year-old patient with a past medical history of Dementia, ,coronary artery disease status post CABG, diabetes mellitus, hyperlipidemia, peripheral vascular disease that is known to ID. His recent admission on 04/15/18 and was noted to have MRSA bacteremia. Left foot wound cultures also grew MRSA. Upon discharge he was set up to receive Vancomycin 1g IV q day for 4 weeks ending 05/21/18, Now admitted with: 1. Vancomycin Toxcity: creatinine and Vancomycin random levels improving. 2. MRSA Bacteremia: from left foot gangrene. Blood cultures showed clearance 04/18/18. Was being treated with Vancomycin, he remains therapeutic in terms of vancomycin levels, so effectively completed abx therapy. Of note, he does have indwelling PPM leads but no generator, BARRON during last admission was negative. Due to rapid clearance in bacteremia and low suspicion for lead infection, prior history of difficulty with lead removal and per discussion with patient, lead removal was not pursued. 2. Left Diabetic Foot Ulcer: on exam Escar noted on left plantar foot, dry, no odor or drainage, Previous admission Left foot culture grew MRSA. 3. DAHIANA: Most likely secondary to high vancomycin level. patient currently off antibiotics. improving. 4. Type 2 Diabetes Mellitus: uncontrolled, HBA1C 7.8, recommend strict glycemic control 5. PAD: s/p right above-knee amputation Plan: -Continue wound care -Monitor off antibiotics -OK to discharge from ID standpoint, will not need further abx -ID clinic follow up in 2 weeks Julián Corona MD Subjective Date of service: 05/22/18 Principal diagnosis: infected wound on the left foot, sepsis Interval history: feeling well. no fever. sitting up in bed and eating lunch. no nausea, vomiting. no diarrhea. no pain. Objective - Exam Narrative Exam: Constitutional: Alert, cooperative. No acute distress Head, Ears, Nose: Normocephalic, atraumatic. External ears, nose normal Eyes: Conjunctivae/corneas clear. No icterus. No ptosis. Neck: Supple, no meningeal signs Oral: dentition poor, no thrush Cardiovascular: S1, S2 normal. Respiratory: Good air entry, clear to auscultation bilaterally GI: Soft, non-tender; bowel sounds normal. No peritoneal signs Musculoskeletal: Escar noted on left plantar foot, dry, no odor or drainage. Left upper chest PPM leads + Skin: No rash or abscess. + right knee scab healed Hem/Lymphatic: No palpable cervical or supraclavicular nodes. No lymphangitis Psych: Mood ok. Affect normal Neurological: Awake, alert, oriented. - Constitutional Vitals: Vital Signs Temp Pulse Resp BP Pulse Ox 98.1 F 65 18 118/74 98 05/22/18 09:06 05/22/18 13:21 05/22/18 09:06 05/22/18 13:21 05/22/18 09:06 Temperature -Last 24 Hours Temperature 98.1 F Temperature 98.1 F Temperature 98.1 F Temperature 97.9 F - Labs CBC & Chem 7: 05/20/18 01:18 05/22/18 05:06 Labs: Abnormal lab results 05/21/18 05/21/18 05/22/18 Range/Units 17:30 21:08 05:06 Potassium 3.5 L D (3.6-5.0) mmol/L BUN 32 H (9-20) mg/dL Creatinine 2.7 H (0.8-1.5) mg/dL Glucose 246 H (75-100) mg/dL POC Glucose 166 H 110 H (70-105) Calcium 7.9 L (8.4-10.2) mg/dL 05/22/18 Range/Units 05:28 Potassium (3.6-5.0) mmol/L BUN (9-20) mg/dL Creatinine (0.8-1.5) mg/dL Glucose (75-100) mg/dL POC Glucose 225 H (70-105) Calcium (8.4-10.2) mg/dL
[2018-05-22] MEDS ORDERED: K-DUR PO NR (14:00)
--- NOTE | 2018-05-22 19:31 | Ultrasound Report ---
FINAL REPORT PROCEDURE: Renal ultrasound. TECHNIQUE: Real-time sonography in multiple planes of the kidneys, ureters and urinary bladder was p erformed with image documentation. CPT 90516 HISTORY: Renal failure. COMPARISON: No prior studies are available for comparison. FINDINGS: The right kidney measures 10.3 centimeters x 5.5 centimeters x 5.4 centimeters. The left kidney measu res 10.6 centimeters x 9.0 centimeters x 7.3 centimeters. There are 2 small rounded masses in the upp er pole of the right kidney. The largest mass measures 2.1 centimeters in maximum dimension. The smal ler mass measures 2.0 centimeters in diameter. These masses are hypoechoic with internal echoes. The do not show definite increased through transmission. Complex cysts are possible. Solid masses are not excluded. I would recommend further evaluation with a contrast enhanced CT scan. If the patient brinda ot tolerate IV contrast, an MRI scan could be performed. There is no hydronephrosis. There is a round ed mass adjacent to the left renal pelvis. Although this shows some low level internal echoes, there is some increased through transmission. This probably represents a parapelvic cyst. This measures 1.8 centimeters in maximum dimension. There is no hydronephrosis. The bladder is unremarkable with a vol ume of approximately 403 milliliters. The patient was unable to void after the study. IMPRESSION: Indeterminate round masses in the upper pole of the right kidney. Please see above comments. Probable left parapelvic cyst.
--- NOTE | 2018-05-22 19:40 | Ultrasound Report ---
FINAL REPORT PROCEDURE: Bladder ultrasound. TECHNIQUE: Real-time imaging of the bladder before and after voiding was attempted. HISTORY: Renal failure. COMPARISON: No prior studies are available for comparison. FINDINGS: The bladder is well-distended. There are no definite wall abnormalities. The bladder volume is approx imately 403 milliliters. After several attempts at voiding the measured bladder volume was 383 millil iters. IMPRESSION: Normal appearing bladder. Inability to void.
--- NOTE | 2018-05-23 21:08 | Discharge Summary ---
Providers - Providers Date of Admission: 05/18/18 21:33 Date of discharge: 05/22/18 Attending physician: ELLIE DUVALL 05/18/18 19:29 Consult to Physician [CONS] Stat Comment: Dr. Santo spoke with Dr. Peralta @ [id number] Consulting Provider: QUINN PERALTA Physician Instructions: Reason For Exam: elevated vanc level 05/19/18 06:02 Consult to Physician [CONS] Routine Comment: Consulting Provider: MK MORENO Physician Instructions: Reason For Exam: DAHIANA POSSIBLY DUE TO HIGH VANCOMYCIN LEVEL 05/20/18 00:55 Consult to Wound/ET Nurse [CONS] Routine Reason For Exam: wound eval left foot 05/20/18 16:57 Consult to Physician [CONS] Stat Comment: Consulting Provider: LASHANDA SUN Physician Instructions: Reason For Exam: PAD Primary care physician: HOSPICE REGISTERED NURSE Hospitalization Reason for admission: Vancomycin toxicity ARF, Hypokalemia Condition: Stable Pertinent studies: Renal US: Indeterminate round masses in the upper lobe of RT kidney Arterial duplex LT LE: Hemodynamically significant stenosis noted Hospital course: Final Discharge Diagnosis: -Vancomycin toxicity -ATN 2/2 vancomycin toxicity -Hypokalemia -H/O MRSA bacteremia 2/2 Left diabetic foot ulcer with gangrene -DM2 with hyperglycemia -Severe Peripheral arterial disease of bilateral LE status post right above-knee amputation -H/O CAD -Uncontrolled HTN Hospital course: Patient was admitted and placed on IVF for the renal impairment. In addition, he received potassium supplements for the hypokalemia. For his other co- morbidities, he was continued on his home medications. Vancomycin was not continued on admission. Both nephrology and ID were consulted and they followed him through-out his hospital stay. For the elevated vancomycin level, daily levels were drawn and it subsequently trended down. At some point, his blood glucose trended up, requiring insulin regimen adjustments. His BP also accelerated necessitating adding additional oral anti-hypertensive. Arterial duplex of the LT LE was done, which showed significant stenosis. Vascular surgery team consulted recommended out-patient follow-up. Subsequently, the patient improved clinically and he was then deemed stable for discharge after clearance by the sub-specialty physicians consulted. Disposition: [id number] HOME UNDER HOME [facility] Time spent for discharge: 38 MINUTES Core Measure Documentation - Palliative Care Palliative Care/ Comfort Measures: Not Applicable - Core Measures Any of the following diagnoses?: none Exam - Constitutional Vitals: Temp Pulse Resp BP Pulse Ox 98.1 F 65 18 118/74 98 05/22/18 09:06 05/22/18 13:21 05/22/18 09:06 05/22/18 13:21 05/22/18 09:06 General appearance: Present: no acute distress, well-nourished - EENT Eyes: Present: PERRL, EOM intact ENT: hearing intact, clear oral mucosa - Neck Neck: Present: supple, normal ROM - Respiratory Respiratory effort: normal Respiratory: bilateral: CTA - Cardiovascular Rhythm: regular Heart Sounds: Present: S1 & S2. Absent: rub, click - Extremities Extremity abnormal: other (chronic ulcers LT foot, RT BKA) Peripheral Pulses: abnormal - Abdominal General gastrointestinal: Present: soft, non-tender, non-distended, normal bowel sounds Male genitourinary: Present: normal - Musculoskeletal Musculoskeletal: gait normal, strength equal bilaterally - Neurologic Neurologic: CNII-XII intact Plan Follow up with: PRIMARY CARE, [Primary Care Provider] - 3-5 Days Prescriptions: RX: Carvedilol [Coreg] 25 mg PO BID #60 tablet
[2018-05-24] MEDS ORDERED: VITAMIN D2 PO SCH (10:00)
--- NOTE | 2018-06-09 05:54 | Vascular Lab Report ---
PROCEDURE: VL ORACIO EVALUATION TECHNIQUE: Blood pressure measurement at the arm and ankles were performed. HISTORY: Arterial insufficiency. COMPARISONS: FINDINGS: The right ankle brachial index could not be obtained. The left ankle-brachial index is 1.07. IMPRESSION: No evidence of left leg arterial insufficiency. The right ORACIO could not be obtained.. This document is electronically signed by Santosh Olsen MD., June 09 2018 05:52:13 AM ET
== END 2018-05-22 18:58 | disposition home health service (06) | DRG 871 ==
LOC: ED 18:01 → 4A 21:33
PROVIDERS: ADMIT Internal Medicine; ATTEND Internal Medicine
DX: A41.02 Sepsis due to Methicillin resistant Staphylococcus aureus (principal); N17.0 Acute kidney failure with tubular necrosis; J96.01 Acute respiratory failure with hypoxia; N39.0 Urinary tract infection, site not specified; E11.52 Type 2 diabetes mellitus with diabetic peripheral angiopathy with gangrene; I96 Gangrene, not elsewhere classified; R65.20 Severe sepsis without septic shock; F03.90 Unspecified dementia, unspecified severity, without behavioral disturbance, psychotic disturbance, mood disturbance, and anxiety; I10 Essential (primary) hypertension; M19.90 Unspecified osteoarthritis, unspecified site; E87.6 Hypokalemia; T36.8X5A Adverse effect of other systemic antibiotics, initial encounter; B95.62 Methicillin resistant Staphylococcus aureus infection as the cause of diseases classified elsewhere; S91.302A Unspecified open wound, left foot, initial encounter; E11.621 Type 2 diabetes mellitus with foot ulcer; L97.529 Non-pressure chronic ulcer of other part of left foot with unspecified severity; I70.245 Atherosclerosis of native arteries of left leg with ulceration of other part of foot; E11.65 Type 2 diabetes mellitus with hyperglycemia; I25.2 Old myocardial infarction; Y92.89 Other specified places as the place of occurrence of the external cause; Z89.611 Acquired absence of right leg above knee; Z82.49 Family history of ischemic heart disease and other diseases of the circulatory system; Z95.1 Presence of aortocoronary bypass graft; Z83.3 Family history of diabetes mellitus; Z87.891 Personal history of nicotine dependence; Z79.82 Long term (current) use of aspirin
CPT/HCPCS: 36415; 76770; 76857; 80048; 80053; 80061; 80202; 81001; 82140; 82962; 83036; 85025; 93922; G0378; A9270-GY; J0360; J1815; J2405; J3480; J7030

== ENCOUNTER 2018-11-20 14:39 | Inpatient (IN) | payer MEDICARE ==
--- NOTE | 2018-11-20 15:17 | Emergency Department Report ---
ED Shortness of Breath HPI - General Chief Complaint: Dyspnea/Respdistress Stated Complaint: JORDIN Time Seen by Provider: 11/20/18 15:05 Source: patient, EMS Mode of arrival: Stretcher Limitations: Physical Limitation - History of Present Illness Initial Comments: Patient is 73 years old male with history of hypertension, diabetes and bilateral lower knee amputation. Patient presented to the ER via EMS complaining of shortness of breath for the last few days. Patient stated that he is unable to lay flat. Patient denied any fever or chills. Patient also denies any chest pain. Patient stated that he never been diagnosed with congestive heart failure before but he was told that he has chronic kidney disease. MD Complaint: shortness of breath - Related Data Home Medications Medication Instructions Recorded Confirmed Last Taken prednisoLONE ACETATE 1% [Pred 1 drops OP QID 01/07/13 05/18/18 Unknown Forte 1%] Ergocalciferol [Vitamin D2] 25,000 units PO 1XW 03/24/18 05/18/18 Unknown FLUoxetine [PROzac] 20 mg PO QDAY 03/24/18 05/18/18 Unknown Previous Rx's Medication Instructions Recorded Last Taken Type AtorvaSTATin [Lipitor] 40 mg PO DAILY #30 tablet 03/27/18 Unknown Rx Ranitidine HCl [Acid Control] 150 mg PO BID #60 tablet 03/27/18 Unknown Rx Aspirin EC [Halfprin EC] 81 mg PO QDAY #30 tablet 04/26/18 Unknown Rx Clopidogrel [Plavix] 75 mg PO QDAY #30 tablet 04/26/18 Unknown Rx HYDROcodone/APAP 5-325 [[place] 1 each PO Q4HR PRN #30 tablet 04/26/18 Unknown Rx 5-325 mg TAB] traZODone [Desyrel] 50 mg PO QHS #30 tablet 04/26/18 Unknown Rx Carvedilol [Coreg] 25 mg PO BID #60 tablet 05/22/18 Unknown Rx Allergies Allergy/AdvReac Type Severity Reaction Status Date / Time No Known Allergies Allergy Verified 04/15/18 11:51 ED Review of Systems ROS: Stated complaint: JORDIN Other details as noted in HPI Comment: All other systems reviewed and negative Constitutional: denies: chills, fever Respiratory: orthopnea, shortness of breath, SOB with exertion, SOB at rest. denies: wheezing Cardiovascular: denies: chest pain, palpitations, dyspnea on exertion Gastrointestinal: denies: abdominal pain, nausea, vomiting, diarrhea, constipation, hematemesis, melena, hematochezia Musculoskeletal: denies: back pain Neurological: denies: headache, weakness, numbness, paresthesias, confusion, abnormal gait ED Past Medical Hx - Past Medical History Hx Hypertension: Yes Hx CVA: No Hx Heart Attack/AMI: Yes (s/p CABG) Hx Congestive Heart Failure: No Hx Diabetes: Yes Hx Deep Vein Thrombosis: No Hx Pulmonary Embolism: No Hx GERD: No Hx Liver Disease: No Hx Renal Disease: Yes (DAHIANA) Hx Sickle Cell Disease: No Hx Arthritis: Yes Hx Headaches / Migraines: No Hx Seizures: No Hx Kidney Stones: No Hx Psychiatric Treatment: No Hx Asthma: No Hx COPD: No Hx Tuberculosis: No Hx Dementia: Yes Hx HIV: No Additional medical history: high cholesterol defibillator - Surgical History Hx Coronary Stent: No Hx Open Heart Surgery: Yes Hx Pacemaker: No Hx Internal Defibrillator: Yes Hx Cholecystectomy: No Hx Appendectomy: No Hx Breast Surgery: No Additional Surgical History: quad bypass wound to left foot and vascular surgery - Social History Smoking Status: Never Smoker - Medications Home Medications: Home Medications Medication Instructions Recorded Confirmed Last Taken Type prednisoLONE ACETATE 1% [Pred 1 drops OP QID 01/07/13 05/18/18 Unknown History Forte 1%] Ergocalciferol [Vitamin D2] 25,000 units PO 1XW 03/24/18 05/18/18 Unknown History FLUoxetine [PROzac] 20 mg PO QDAY 03/24/18 05/18/18 Unknown History AtorvaSTATin [Lipitor] 40 mg PO DAILY #30 tablet 03/27/18 05/18/18 Unknown Rx Ranitidine HCl [Acid Control] 150 mg PO BID #60 tablet 03/27/18 05/18/18 Unknown Rx Aspirin EC [Halfprin EC] 81 mg PO QDAY #30 tablet 04/26/18 05/18/18 Unknown Rx Clopidogrel [Plavix] 75 mg PO QDAY #30 tablet 04/26/18 05/18/18 Unknown Rx HYDROcodone/APAP 5-325 [[place] 1 each PO Q4HR PRN #30 tablet 04/26/18 05/18/18 Unknown Rx 5-325 mg TAB] traZODone [Desyrel] 50 mg PO QHS #30 tablet 04/26/18 05/18/18 Unknown Rx Carvedilol [Coreg] 25 mg PO BID #60 tablet 05/22/18 Unknown Rx ED Physical Exam - General Limitations: Physical Limitation General appearance: alert, in no apparent distress - Head Head exam: Present: atraumatic, normocephalic, normal inspection - Eye Eye exam: Present: normal appearance, PERRL - ENT ENT exam: Present: normal exam, normal orophraynx, mucous membranes moist - Neck Neck exam: Present: normal inspection, full ROM. Absent: tenderness, meningismus - Respiratory Respiratory exam: Present: rales. Absent: respiratory distress, wheezes, r honchi, stridor, accessory muscle use, decreased breath sounds, prolonged expiratory - Cardiovascular Cardiovascular Exam: Present: regular rate, normal rhythm, normal heart sounds - GI/Abdominal GI/Abdominal exam: Present: soft, normal bowel sounds. Absent: distended, tenderness, guarding, rebound, rigid, organomegaly, mass, bruit, pulsatile mass, hernia - Neurological Exam Neurological exam: Present: alert, oriented X3, CN II-XII intact - Skin Skin exam: Present: warm, intact, normal color ED Course Vital Signs 11/20/18 14:52 Pulse Rate 88 O2 Sat by Pulse 95 Oximetry ED Medical Decision Making - Lab Data Result diagrams: 11/20/18 15:28 11/20/18 15:28 - EKG Data -: EKG Interpreted by La EKG shows normal: sinus rhythm Rate: normal - EKG Data Interpretation: no acute changes - Radiology Data Radiology results: report reviewed - Medical Decision Making Patient is 73 years old male with history of hypertension, diabetes and bilateral lower knee amputation. Patient presented to the ER via EMS complaining of shortness of breath for the last few days. Patient stated that he is unable to lay flat. Patient denied any fever or chills. Patient also denies any chest pain. Patient stated that he never been diagnosed with congestive heart failure before but he was told that he has chronic kidney disease. Patient found to be in acute congestive heart failure. Patient also had elevated creatinine and BUN. The patient received 40 mg of IV Lasix. Patient discussed with Dr. Pace, he agreed to admit the patient to medical service for further management. Critical care attestation.: If time is entered above; I have spent that time in minutes in the direct care of this critically ill patient, excluding procedure time. ED Disposition Clinical Impression: CHF exacerbation, Shortness of breath Disposition: OP ADMIT IP TO THIS HOSP Is pt being admited?: Yes Condition: Stable
[2018-11-20 15:41] LABS: Basophils % (Auto) 0.4 % (0.0-1.8); Eosinophils # (Auto) 0.1 K/mm3 (0.0-0.4); Eosinophils % (Auto) 1.7 % (0.0-4.3); Hematocrit 27.9 % (35.5-45.6); Hemoglobin 9.2 gm/dl (11.8-15.2); Lymphocytes # (Auto) 1.2 K/mm3 (1.2-5.4); Mean Corpuscular HGB Conc 33 % (32-34); Mean Corpuscular Volume 87 fl (84-94); Monocytes # (Auto) 0.7 K/mm3 (0.0-0.8); Monocytes % (Auto) 10.8 % (0.0-7.3); Platelet Count 124 K/mm3 (140-440); Red Cell Distribution Width 14.9 % (13.2-15.2)
[2018-11-20 15:52] LABS: INR 1.04 (0.87-1.13)
[2018-11-20 15:54] LABS: Partial Thromboplastin Time 33.5 Sec. (24.2-36.6)
--- NOTE | 2018-11-20 16:23 | XRay Report ---
CHEST 1 VIEW INDICATION: Dyspnea. COMPARISON: None FINDINGS: Support devices: Retained pacemaker leads are noted Heart: Within normal limits. Lungs/Pleura: Small left pleural effusion blunts the left costophrenic angle. The lungs are clear oth erwise. No pneumothorax. Additional findings: None. IMPRESSION: Small left pleural effusion. Signer Name: Alonso Rosen Jr, MD Signed: 11/20/2018 4:18 PM Workstation Name: [id number]
[2018-11-20] MEDS ORDERED: LASIX IV ONE (16:27)
[2018-11-20] MEDS ORDERED: HumuLIN R IV ONE (16:27)
--- NOTE | 2018-11-20 16:39 | History and Physical Report ---
History of Present Illness Chief complaint: I keisha easte History of present illness: 73 YO Male with HTN, HI, DM, CAD S/P CABG, Dementia, OA, HLD presents to ED for evaluation. Pt states that he has experienced shortness of breath over the past 3 days with worsening symptoms over the past 1 day. Pt acknowledges Orth opnea/PND, Dypsnea on exertion, as well as dypsnea at rest, and decreased exercise tolerance. Pt also acknowledges feeling generalized weakness and decreased appetite. EMS notified, and upon arrival the patient was found to be in distress and transported to [facility]. Pt seen and evaluated in ED and found to have CHF Decompensation, Acute Kidney Injury, and Generalized deconditioning. Pt admitted to telemetry. Pt denies fever, chills, CP, Palpitations, NVD, Trauma, Skin Rash, BRBPR, Unintentional weight loss, unilateral leg swellilng, calf pain, prolonged travel/immobility, individual/family history of DVT/PE/Bleeding/Blood Clotting Disorders, Hemoptysis, or night sweats. Medications and Allergies Allergies Allergy/AdvReac Type Severity Reaction Status Date / Time No Known Allergies Allergy Verified 04/15/18 11:51 Home Medications Medication Instructions Recorded Confirmed Last Taken Type prednisoLONE ACETATE 1% [Pred 1 drops OP QID 01/07/13 11/20/18 11/20/18 History Forte 1%] Ergocalciferol [Vitamin D2] 25,000 units PO 1XW 03/24/18 11/20/18 11/15/18 History FLUoxetine [PROzac] 20 mg PO QDAY 03/24/18 11/20/18 11/20/18 History AtorvaSTATin [Lipitor] 40 mg PO DAILY #30 tablet 03/27/18 11/20/18 11/20/18 Rx Ranitidine HCl [Acid Control] 150 mg PO BID #60 tablet 03/27/18 11/20/18 Rx Aspirin EC [Halfprin EC] 81 mg PO QDAY #30 tablet 04/26/18 11/20/18 11/20/18 Rx Clopidogrel [Plavix] 75 mg PO QDAY #30 tablet 04/26/18 11/20/18 11/20/18 Rx HYDROcodone/APAP 5-325 [[place] 1 each PO Q4HR PRN #30 tablet 04/26/18 11/20/18 11/20/18 Rx 5-325 mg TAB] traZODone [Desyrel] 50 mg PO QHS #30 tablet 04/26/18 11/20/18 11/20/18 Rx Carvedilol [Coreg] 25 mg PO BID #60 tablet 05/22/18 11/20/18 11/20/18 Rx Exam - Constitutional Vitals: Temp Pulse Resp BP Pulse Ox 88 95 11/20/18 14:52 11/20/18 14:52 General appearance: Present: mild distress - EENT Eyes: Present: PERRL ENT: hearing intact, clear oral mucosa - Neck Neck: Present: supple, normal ROM - Respiratory Respiratory effort: labored Respiratory: bilateral: diminished, rhonchi - Extremities Extremity abnormal: edema Peripheral Pulses: within normal limits - Abdominal General gastrointestinal: Present: soft, non-tender, non-distended, normal bowel sounds Male genitourinary: Present: normal - Integumentary Integumentary: Present: clear, dry - Musculoskeletal Musculoskeletal: generalized weakness - Psychiatric Psychiatric: appropriate mood/affect, intact judgment & insight - Neurologic Neurologic: CNII-XII intact, moves all extremities, no gait normal Results - Labs CBC & Chem 7: 11/20/18 15:28 11/20/18 15:28 Labs: Abnormal lab results 11/20/18 11/20/18 11/20/18 Range/Units 15:28 15:28 15:28 RBC 3.20 L (3.65-5.03) M/mm3 Hgb 9.2 L (11.8-15.2) gm/dl Hct 27.9 L (35.5-45.6) % Plt Count 124 L (140-440) K/mm3 Emery % (Auto) 10.8 H (0.0-7.3) % BUN 66 H (9-20) mg/dL Creatinine 3.9 H (0.8-1.5) mg/dL Glucose 306 H (75-100) mg/dL Calcium 8.0 L (8.4-10.2) mg/dL Troponin T 0.091 H (0.00-0.029) ng/mL NT-Pro-B Natriuret Pep 50639 H (0-900) pg/mL Assessment and Plan - Patient Problems (1) CHF exacerbation Current Visit: No Status: Acute Qualifiers: Heart failure type: systolic Qualified Code(s): I50.23 - Acute on chronic systolic (congestive) heart failure Plan to address problem: Admit to telemetry, strict I/O, daily weight, BNP, supplemental oxygen, afterload reduction, diuresis, monitor uop q shift, chest x ray, thyroid panel, magnesium level, cardiology consulted, Echo from 04/15/18 reviewed. EF 40%. (2) Acute kidney injury (DAHIANA) with acute tubular necrosis (ATN) Current Visit: Yes Status: Acute Plan to address problem: monitor uop q shift, urine electrolytes, supportive care. Nephrology consulted, (3) History of agent [place] exposure Current Visit: Yes Status: Acute Plan to address problem: Supportive care, neuro checks, diabetes control, (4) Blindness Current Visit: Yes Status: Acute Plan to address problem: Outpatient ophthalmology F/U care (5) HLD (hyperlipidemia) Current Visit: Yes Status: Acute Qualifiers: Hyperlipidemia type: mixed hyperlipidemia Qualified Code(s): E78.2 - Mixed hyperlipidemia Plan to address problem: Statin therapy, lipid panel, supportive care. (6) CAD (coronary artery disease) Current Visit: Yes Status: Acute Qualifiers: Associated angina: without angina Plan to address problem: Statin therapy, low cholesterol diet, risk factor reduction (7) Diabetes Current Visit: No Status: Acute Plan to address problem: ADA diet, insulin, accu check, hypoglycemia protocol (8) HTN (hypertension) Current Visit: No Status: Acute Qualifiers: Hypertension type: unspecified Qualified Code(s): I10 - Essential (primary) hypertension Plan to address problem: ADA diet, insulin, accu check, supportive care. (9) Weakness generalized Current Visit: Yes Status: Acute Plan to address problem: PT consulted, supportive care. (10) DVT prophylaxis Current Visit: No Status: Acute Plan to address problem: SCD to BLE while in bed,
[2018-11-20 16:40] LABS: Bilirubin,Urine NEG (Negative); Blood,Urine MOD (Negative); Color,Urine Straw (Yellow); Urobilinogen,Urine < 2.0 mg/dL (<2.0)
[2018-11-20 16:41] LABS: Protein,Urine >500 mg/dL (Negative)
[2018-11-20] MEDS ORDERED: TYLENOL PO PRN (16:42)
[2018-11-20] MEDS ORDERED: ZOFRAN IV PRN (16:42)
[2018-11-20] MEDS ORDERED: SODIUM CHLORIDE FLUSH SYRINGE 10 ML IV PRN (16:42)
[2018-11-20] MEDS: LASIX IV SCH (17:44)
[2018-11-20 18:45] LABS: Chol/HDL Ratio 2.34 %
[2018-11-20 21:25] LABS: Free T4 (Free Thyroxine) 0.81 ng/dL (0.76-1.46)
[2018-11-20] MEDS ORDERED: NON-FORMULARY (Ranitidine Hcl [Acid Control] 150 MG) PO SCH (22:00)
[2018-11-20] MEDS: COREG PO SCH (22:27)
[2018-11-20] MEDS: DESYREL PO SCH (22:27)
[2018-11-20] MEDS: PEPCID PO SCH (22:27)
[2018-11-20] MEDS: HEPARIN SUB-Q SCH (22:28)
[2018-11-20] MEDS: HumuLIN R SUB-Q SCH (22:28)
[2018-11-20] MEDS: PRED FORTE 1% OD SCH (22:29)
[2018-11-20] MEDS: SODIUM CHLORIDE FLUSH SYRINGE 10 ML IV SCH (22:29)
[2018-11-21] MEDS: NORCO 5/325 PO PRN ×2 (03:28→21:32)
[2018-11-21 05:34] LABS: Basophils % (Auto) 0.5 % (0.0-1.8); Eosinophils # (Auto) 0.2 K/mm3 (0.0-0.4); Eosinophils % (Auto) 3.7 % (0.0-4.3); Hematocrit 25.2 % (35.5-45.6); Hemoglobin 8.4 gm/dl (11.8-15.2); Lymphocytes # (Auto) 1.2 K/mm3 (1.2-5.4); Lymphocytes % (Auto) 18.4 % (13.4-35.0); Mean Corpuscular HGB Conc 33 % (32-34); Mean Corpuscular Volume 88 fl (84-94); Monocytes # (Auto) 0.9 K/mm3 (0.0-0.8); Monocytes % (Auto) 14.4 % (0.0-7.3); Platelet Count 118 K/mm3 (140-440); Red Blood Count 2.88 M/mm3 (3.65-5.03); Red Cell Distribution Width 15.2 % (13.2-15.2)
[2018-11-21 05:54] LABS: Alanine Aminotransferase 5 units/L (7-56); Albumin 2.2 g/dL (3.9-5); BUN/Creatinine Ratio 18; Blood Urea Nitrogen 70 mg/dL (9-20); Calcium 7.8 mg/dL (8.4-10.2); Hemolysis Index 3
[2018-11-21] MEDS: HumuLIN R SUB-Q SCH ×4 (07:30→21:35)
[2018-11-21] MEDS: LASIX IV SCH ×2 (07:41→18:45)
--- NOTE | 2018-11-21 08:19 | Nuclear Medicine Report ---
VENTILATION PERFUSION PULMONARY SCINTIGRAPHY HISTORY: Dyspnea COMPARISON: 11/20/2018 at 1543 hours chest radiograph. TECHNIQUE: Radiopharmaceutical was inhaled. Tc-99m-MAA was then injected. Ventilation and perfusion images were acquired. RADIOPHARMACEUTICAL: 16.4 mCi of Xe-133 inhaled 4.6 mCi of Tc-99m-MAA injected FINDINGS: VENTILATION: Mild air trapping is noted in the lower lung zones suggesting mild obstructive pulmonary disease. PERFUSION: No segmental defect is identified. Blunting of the left costophrenic angle correlates with a small left pleural effusion. Additional Findings: None. IMPRESSION: 1. Low probability for pulmonary embolism. Signer Name: Alonso Rosen Jr, MD Signed: 11/21/2018 8:15 AM Workstation Name: [id number]
--- NOTE | 2018-11-21 09:17 | Consultation ---
History of Present Illness - Reason for Consult Consult date: 11/21/18 acute renal failure - History of Present Illness This is a 73 year old man with CKD 3, PVD with bilateral BKA, DM, CAD s/p CABG who presents with shortness of breath. He notes that he was feeling short of breath despite taking his home Lasix regularly, with good urine output. Regarding his kidneys, he denies seeing a coil tester in the past, but notes that he was in [facility] earlier this year and had near kidney failure. Per [facility] review, he went to that hospital on 07/22/18 with a creatinine >3, improved to 2.6 at discharge on 08/12/18; he was admitted with gangrene of left foot and had BKA. Also has a history of urinary retention, so is on flomax and finasteride. He notes a long history of DM and HTN. Currently, notes improved breathing and no chest pain, nausea, or vomiting. Other relevant information from [facility] hospitalization: Renal ultrasound 07/25/18- Right kidney measures 12.2 cm in length, left kidney measures 12.2 cm. Bilateral renal cortical thinning and mildly increased echogenicity. No hydronephrosis. Multiple bilateral renal cortical cysts indexed as follows: - 2.9 x 2 x 2.4 cm mildly complex cyst superior pole right kidney with a single borderline thickened internal septation. - 2.8 x 2 x 2.3 cm predominantly simple appearing cyst superior/interpolar right kidney. - 3 x 1.8 x 2.5 cm moderately complex cyst interpolar/inferior pole right kidney with multiple mildly thickened internal septations. - 2.6 x 4 x 2.4 cm predominantly simple appearing cyst superior pole left kidney. - 2.6 x 2.6 x 1.9 cm predominantly simple appearing cyst within the interpolar left kidney. Urinary bladder is moderately distended. IMPRESSION: 1. Imaging findings in keeping with chronic medical renal disease. No hydronephrosis. 2. Bilateral renal cortical cysts as above. 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 Recommend renal ultrasound follow-up within 6 months. Optimal characterization could be performed with contrast-enhanced abdominal MRI or renal mass particle CT as clinically warranted. Microalbumin/creatinine ratio: 6818 SPEP WNL A1c 8.8% PTH 100 Past History Past Medical History: CAD, diabetes, hypertension Past Surgical History: CABG, Other (b/l BKA) Social history: no significant social history Family history: no significant family history Medications and Allergies Allergies Allergy/AdvReac Type Severity Reaction Status Date / Time No Known Allergies Allergy Verified 04/15/18 11:51 Home Medications Medication Instructions Recorded Confirmed Last Taken Type prednisoLONE ACETATE 1% [Pred 1 drops OP QID 01/07/13 11/20/18 11/20/18 History Forte 1%] Ergocalciferol [Vitamin D2] 25,000 units PO 1XW 03/24/18 11/20/18 11/15/18 History FLUoxetine [PROzac] 20 mg PO QDAY 03/24/18 11/20/18 11/20/18 History AtorvaSTATin [Lipitor] 40 mg PO DAILY #30 tablet 03/27/18 11/20/18 11/20/18 Rx Ranitidine HCl [Acid Control] 150 mg PO BID #60 tablet 03/27/18 11/20/18 11/20/18 Rx Aspirin EC [Halfprin EC] 81 mg PO QDAY #30 tablet 04/26/18 11/20/18 11/20/18 Rx Clopidogrel [Plavix] 75 mg PO QDAY #30 tablet 04/26/18 11/20/18 11/20/18 Rx HYDROcodone/APAP 5-325 [[place] 1 each PO Q4HR PRN #30 tablet 04/26/18 11/20/18 11/20/18 Rx 5-325 mg TAB] traZODone [Desyrel] 50 mg PO QHS #30 tablet 04/26/18 11/20/18 11/20/18 Rx Carvedilol [Coreg] 25 mg PO BID #60 tablet 05/22/18 11/20/18 11/20/18 Rx Active Meds: Active Medications Acetaminophen (Tylenol) 650 mg PO Q4H PRN PRN Reason: Pain MILD(1-3)/Fever >100.5/[place] Acetaminophen/Hydrocodone Bitart ([place] 5/325) 1 each PO Q4HR PRN PRN Reason: Pain Last Admin: 11/21/18 03:28 Dose: 1 each Documented by: Aspirin (Halfprin Ec) 81 mg PO QDAY LEROY Atorvastatin Calcium (Lipitor) 40 mg PO DAILY LEROY Carvedilol (Coreg) 25 mg PO BID [facility] Last Admin: 11/20/18 22:27 Dose: 25 mg Documented by: Clopidogrel Bisulfate (Plavix) 75 mg PO QDAY [facility] Ergocalciferol (Vitamin D2) 25,000 unit PO We [facility] Famotidine (Pepcid) 20 mg PO QDAY [facility] Last Admin: 11/20/18 22:27 Dose: 20 mg Documented by: Fluoxetine HCl (Prozac) 20 mg PO QDAY [facility] Furosemide (Lasix) 40 mg IV BID@0600,1800 [facility] Last Admin: 11/21/18 07:41 Dose: Not Given Documented by: Heparin Sodium (Porcine) (Heparin) 5,000 unit SUB-Q Q12HR [facility] Last Admin: 11/20/18 22:28 Dose: 5,000 unit Documented by: Insulin Human Regular (Humulin R) 0 units SUB-Q ACHS [facility]; Protocol Last Admin: 11/20/18 22:28 Dose: 4 units Documented by: Ondansetron HCl (Zofran) 4 mg IV Q8H PRN PRN Reason: Nausea And Vomiting Prednisolone Acetate (Pred Forte 1%) 1 drops OD QID [facility] Last Admin: 11/20/18 22:29 Dose: 1 drops Documented by: Sodium Chloride (Sodium Chloride Flush Syringe 10 Ml) 10 ml IV BID [facility] Last Admin: 11/20/18 22:29 Dose: 10 ml Documented by: Sodium Chloride (Sodium Chloride Flush Syringe 10 Ml) 10 ml IV PRN PRN PRN Reason: LINE FLUSH Trazodone HCl (Desyrel) 50 mg PO QHS [facility] Last Admin: 11/20/18 22:27 Dose: 50 mg Documented by: Review of Systems All systems: negative (as per HPI) Exam - Vital Signs Vital signs: Vital Signs Pulse Pulse Ox 88 95 11/20/18 14:52 11/20/18 14:52 - General Appearance General appearance: well-developed, well-nourished, appears stated age EENT: PERRL, mucous membranes moist Neck: Present: neck supple, trachea midline. Absent: JVD/HJR, Masses Respiratory: Clear to Ascultation Heart: regular, normal heart rate, S1S2, no murmurs Gastrointestinal: Present: normal, normoactive bowel sounds Integumentary: no rash Neurologic: no focal deficit Musculoskeletal: Present: other (b/l BKA noted) Psychiatric: mood/affect appropriate Results - Lab Results 11/21/18 03:50 11/21/18 03:50 Most recent lab results Calcium 7.8 mg/dL (8.4-10.2) L 11/21/18 03:50 Magnesium 1.90 mg/dL (1.7-2.3) 11/20/18 20:32 Assessment and Plan Assessment: -CKD stage 3 with DAHIANA likely from cardiorenal physiology. In reviewing his outside records, he has CKD at baseline likely secondary to DM, HTN, cardiovascular disease. -nephrotic range proteinuria -DM -B/L BKA -CAD s/p CABG Plan: -continue volume management with IV diuretics for goal net negative 2L. Discussed low salt and fluid intake goals with patient to avoid volume overload -will need outpatient follow up with nephrology; information given to patient. In outpatient setting, may consider KRISTINE-I/ARB if creatinine is stable given proteinuria -will send workup for secondary causes of nephrotic range proteinuria. Likely diabetic but rule out HIV, hepatitis, myeloma. Consider biopsy if unclear in outpatient setting -BP soft this morning, may need to hold home meds for now to avoid further renal hypoperfusion injury -strict Is/Os -avoid nephrotoxins -renally dose meds -low salt diet Thank you for this consult. We will continue to follow; please do not hesitate to reach out with questions or concerns.
[2018-11-21] MEDS ORDERED: PROzac PO SCH (10:00)
[2018-11-21] MEDS: PRED FORTE 1% OD SCH ×4 (10:00→21:34)
[2018-11-21] MEDS: HALFPRIN EC PO SCH (10:26)
[2018-11-21] MEDS: PLAVIX PO SCH (10:27)
[2018-11-21] MEDS: PEPCID PO SCH (10:27)
[2018-11-21] MEDS: HEPARIN SUB-Q SCH ×2 (10:28→21:34)
[2018-11-21] MEDS: COREG PO SCH ×2 (10:29→21:33)
[2018-11-21] MEDS: SODIUM CHLORIDE FLUSH SYRINGE 10 ML IV SCH ×2 (10:30→21:36)
--- NOTE | 2018-11-21 12:37 | Progress Note ---
Assessment and Plan Assessment and plan: 73 YO Male with HTN, NV, DM, CAD S/P CABG, Dementia, OA, HLD presents to ED for evaluation. Pt states that he has experienced shortness of breath over the past 3 days with worsening symptoms over the past 1 day. Pt acknowledges Orthopnea/PND, Dypsnea on exertion, as well as dypsnea at rest, and decreased exercise tolerance. Pt also acknowledges feeling generalized weakness and decreased appetite. EMS notified, and upon arrival the patient was found to be in distress and transported to [facility]. Pt seen and evaluated in ED and found to have CHF Decompensation, Acute Kidney Injury, and Generalized deconditioning. Pt admitted to telemetry. Pt denies fever, chills, CP, Palpitations, NVD, Trauma, Skin Rash, BRBPR, Unintentional weight loss, unilateral leg swelling, calf pain, prolonged travel/immobility, individual/family history of DVT/PE/Bleeding/Blood Clotting Disorders, Hemoptysis, or night sweats. (1) CHF exacerbation Current Visit: No Status: Acute Qualifiers: Heart failure type: systolic Qualified Code(s): I50.23 - Acute on chronic systolic (congestive) heart failure Plan to address problem: continue strict I/O, daily weight, BNP, supplemental oxygen, afterload reduction, diuresis, monitor uop q shift, chest x ray, thyroid panel, magnesium level, cardiology consulted, Echo from 04/15/18 reviewed. EF 40%. (2) Acute kidney injury (DAHIANA) with acute tubular necrosis (ATN) Current Visit: Yes Status: Acute Plan to address problem: monitor uop q shift, urine electrolytes, supportive care. Nephrology consulted, (3) History of agent Armstrong exposure Current Visit: Yes Status: Acute Plan to address problem: Supportive care, neuro checks, diabetes control, (4) Blindness Current Visit: Yes Status: Acute Plan to address problem: Outpatient ophthalmology F/U care (5) HLD (hyperlipidemia) Current Visit: Yes Status: Acute Qualifiers: Hyperlipidemia type: mixed hyperlipidemia Qualified Code(s): E78.2 - Mixed hyperlipidemia Plan to address problem: Statin therapy, lipid panel, supportive care. (6) CAD (coronary artery disease) Current Visit: Yes Status: Acute Qualifiers: Associated angina: without angina Plan to address problem: Statin therapy, low cholesterol diet, risk factor reduction (7) Diabetes Current Visit: No Status: Acute Plan to address problem: ADA diet, insulin, accu check, hypoglycemia protocol (8) HTN (hypertension) Current Visit: No Status: Acute Qualifiers: Hypertension type: unspecified Qualified Code(s): I10 - Essential (primary) hypertension Plan to address problem: ADA diet, insulin, accu check, supportive care. (9) Weakness generalized Current Visit: Yes Status: Acute Plan to address problem: PT consulted, supportive care. (10) DVT prophylaxis Current Visit: No Status: Acute Plan to address problem: SCD to BLE while in bed, Discontinue lizama, If needed we can use Condom catheter. History Interval history: Patient seen and examined, improving but still with shortness of breath and orthopnea Hospitalist Physical - Physical exam Narrative exam: General appearance: Present: mild distress - EENT Eyes: Present: PERRL ENT: hearing intact, clear oral mucosa - Neck Neck: Present: supple, normal ROM - Respiratory Respiratory effort: labored Respiratory: bilateral: diminished, rhonchi - Extremities Extremity abnormal: edema Peripheral Pulses: within normal limits - Abdominal General gastrointestinal: Present: soft, non-tender, non-distended, normal bowel sounds Male genitourinary: Present: normal - Integumentary Integumentary: Present: multiple sores in the knees and at the stump. No erythema or cellulitis - Musculoskeletal Musculoskeletal: generalized weakness, bilateral BKA - Psychiatric Psychiatric: appropriate mood/affect, intact judgment & insight - Neurologic Neurologic: CNII-XII intact, moves all extremities, no gait normal - Constitutional Vitals: Temp Pulse Resp BP Pulse Ox 97.8 F 56 L 18 106/35 92 11/21/18 10:17 11/21/18 10:29 11/21/18 10:17 11/21/18 10:29 11/21/18 10:17 General appearance: Present: mild distress Results - Labs CBC & Chem 7: 11/22/18 03:49 11/22/18 03:49 Labs: Laboratory Last Values WBC 6.4 K/mm3 (4.5-11.0) 11/21/18 03:50 RBC 2.88 M/mm3 (3.65-5.03) L 11/21/18 03:50 Hgb 8.4 gm/dl (11.8-15.2) L 11/21/18 03:50 Hct 25.2 % (35.5-45.6) L 11/21/18 03:50 MCV 88 fl (84-94) 11/21/18 03:50 MCH 29 pg (28-32) 11/21/18 03:50 MCHC 33 % (32-34) 11/21/18 03:50 RDW 15.2 % (13.2-15.2) 11/21/18 03:50 Plt Count 118 K/mm3 (140-440) L 11/21/18 03:50 Lymph % (Auto) 18.4 % (13.4-35.0) 11/21/18 03:50 [place] % (Auto) 14.4 % (0.0-7.3) H 11/21/18 03:50 Eos % (Auto) 3.7 % (0.0-4.3) 11/21/18 03:50 Baso % (Auto) 0.5 % (0.0-1.8) 11/21/18 03:50 Lymph # 1.2 K/mm3 (1.2-5.4) 11/21/18 03:50 [place] # 0.9 K/mm3 (0.0-0.8) H 11/21/18 03:50 Eos # 0.2 K/mm3 (0.0-0.4) 11/21/18 03:50 Baso # 0.0 K/mm3 (0.0-0.1) 11/21/18 03:50 Seg Neutrophils % 63.0 % (40.0-70.0) 11/21/18 03:50 Seg Neutrophils # 4.0 K/mm3 (1.8-7.7) 11/21/18 03:50 PT 13.3 Sec. (12.2-14.9) 11/20/18 15:28 INR 1.04 (0.87-1.13) 11/20/18 15:28 APTT 33.5 Sec. (24.2-36.6) 11/20/18 15:28 Sodium 139 mmol/L (137-145) 11/21/18 03:50 Potassium 3.6 mmol/L (3.6-5.0) D 11/21/18 03:50 Chloride 101.5 mmol/L (98-107) 11/21/18 03:50 Carbon Dioxide 26 mmol/L (22-30) 11/21/18 03:50 15 mmol/L 11/21/18 03:50 BUN 70 mg/dL (9-20) H 11/21/18 03:50 3.9 mg/dL (0.8-1.5) H 11/21/18 03:50 Estimated GFR 15 ml/min 11/21/18 03:50 18 % 11/21/18 03:50 Glucose 71 mg/dL (75-100) L 11/21/18 03:50 POC Glucose 252 (70-105) H 11/20/18 21:22 Calcium 7.8 mg/dL (8.4-10.2) L 11/21/18 03:50 Magnesium 1.90 mg/dL (1.7-2.3) 11/20/18 20:32 < 0.20 mg/dL (0.1-1.2) 11/21/18 03:50 AST 12 units/L (5-40) 11/21/18 03:50 ALT 5 units/L (7-56) L 11/21/18 03:50 66 units/L (35-129) 11/21/18 03:50 0.086 ng/mL (0.00-0.029) H 11/20/18 17:39 NT-Pro-B Natriuret Pep 62674 pg/mL (0-900) H 11/20/18 15:28 5.3 g/dL (6.3-8.2) L 11/21/18 03:50 2.2 g/dL (3.9-5) L 11/21/18 03:50 0.7 % 11/21/18 03:50 Triglycerides 80 mg/dL (2-149) 11/20/18 17:39 Cholesterol 129 mg/dL (50-199) 11/20/18 17:39 74 mg/dL (50-130) 11/20/18 17:39 55 mg/dL (40-59) 11/20/18 17:39 2.34 % 11/20/18 17:39 TSH 3.900 mlU/mL (0.270-4.200) 11/20/18 20:32 Free T4 0.81 ng/dL (0.76-1.46) 11/20/18 20:32 Straw (Yellow) 11/20/18 16:15 Clear (Clear) 11/20/18 16:15 6.0 (5.0-7.0) 11/20/18 16:15 Ur Specific [place] 1.010 (1.003-1.030) 11/20/18 16:15 >500 mg/dL (Negative) 11/20/18 16:15 >=500 mg/dL (Negative) 11/20/18 16:15 Neg mg/dL (Negative) 11/20/18 16:15 Mod (Negative) 11/20/18 16:15 Neg (Negative) 11/20/18 16:15 Neg (Negative) 11/20/18 16:15 < 2.0 mg/dL (<2.0) 11/20/18 16:15 Ur Leukocyte Esterase Tr (Negative) 11/20/18 16:15 8.0 /HPF (0.0-6.0) H 11/20/18 16:15 47.0 /HPF (0.0-6.0) 11/20/18 16:15 Active Medications - Current Medications Current Medications: Generic Name Dose Route Start Last Admin Trade Name Freq PRN Reason Stop Dose Admin Acetaminophen 650 mg 11/20/18 16:42 Tylenol PO Q4H PRN Pain MILD(1-3)/Fever >100.5/[place] Acetaminophen/Hydrocodone Bitart 1 each 11/20/18 19:31 11/21/18 03:28 [place] 5/325 PO 1 each Q4HR PRN Administration Pain Aspirin 81 mg 11/21/18 10:00 11/21/18 10:26 Halfprin Ec PO 81 mg QDAY LEROY Administration Atorvastatin Calcium 40 mg 11/21/18 10:00 11/21/18 10:27 Lipitor PO 40 mg DAILY LEROY Administration Carvedilol 25 mg 11/20/18 22:00 11/21/18 10:29 Coreg PO Not Given BID LEROY Clopidogrel Bisulfate 75 mg 11/21/18 10:00 11/21/18 10:27 Plavix PO 75 mg QDAY LEROY Administration Ergocalciferol 25,000 unit 11/27/18 10:00 Vitamin D2 PO We LEROY Famotidine 20 mg 11/20/18 22:00 11/21/18 10:27 Pepcid PO 20 mg QDAY LEROY Administration Fluoxetine HCl 20 mg 11/21/18 10:00 11/21/18 10:27 Prozac PO 20 mg QDAY LEROY Administration Furosemide 40 mg 11/20/18 18:00 11/21/18 07:41 Lasix IV Not Given BID@0600,1800 LEROY Heparin Sodium (Porcine) 5,000 unit 11/20/18 22:00 11/21/18 10:28 Heparin SUB-Q 5,000 unit Q12HR LEROY Administration Insulin Human Regular 0 units 11/20/18 22:00 11/21/18 07:30 Humulin R SUB-Q Not Given ACHS [facility] Protocol Ondansetron HCl 4 mg 11/20/18 16:42 Zofran IV Q8H PRN Nausea And Vomiting Prednisolone Acetate 1 drops 11/20/18 22:00 11/20/18 22:29 Pred Forte 1% OD 1 drops QID LEROY Administration Sodium Chloride 10 ml 11/20/18 22:00 11/21/18 10:30 Sodium Chloride Flush Syringe 10 Ml IV 10 ml BID LEROY Administration Sodium Chloride 10 ml 11/20/18 16:42 Sodium Chloride Flush Syringe 10 Ml IV PRN PRN LINE FLUSH Trazodone HCl 50 mg 11/20/18 22:00 11/20/18 22:27 Desyrel PO 50 mg QHS LEROY Administration
--- NOTE | 2018-11-21 13:19 | Consultation ---
History of Present Illness Consult date: 11/21/18 History of present illness: 73 YO Male with HTN, ND, DM, CAD S/P CABG, Dementia, OA, HLD presents to ED for evaluation. Pt states that he has experienced shortness of breath over the past 3 days with worsening symptoms over the past 1 day. Pt acknowledges Orthopnea/PND, Dypsnea on exertion, as well as dypsnea at rest, and decreased exercise tolerance. Pt also acknowledges feeling generalized weakness and decreased appetite. EMS notified, and upon arrival the patient was found to be in distress and transported to [facility]. Pt seen and evaluated in ED and found to have CHF Decompensation, Acute Kidney Injury, and Generalized deconditioning. Pt admitted to telemetry. Patient was seen in March 2018 was remarkable for syncopal episode and congestive heart failure. His ejection fraction at that time was 35-40%. Patient has ICD in place but it's been disconnected patient claims that it was giving inappropriate shocks. Past History Past Medical History: CAD, diabetes, hypertension Past Surgical History: CABG, Other (b/l BKA) Social history: no significant social history Family history: no significant family history Medications and Allergies Allergies Allergy/AdvReac Type Severity Reaction Status Date / Time No Known Allergies Allergy Verified 04/15/18 11:51 Home Medications Medication Instructions Recorded Confirmed Last Taken Type prednisoLONE ACETATE 1% [Pred 1 drops OP QID 01/07/13 11/20/18 11/20/18 History Forte 1%] Ergocalciferol [Vitamin D2] 25,000 units PO 1XW 03/24/18 11/20/18 11/15/18 History FLUoxetine [PROzac] 20 mg PO QDAY 03/24/18 11/20/18 11/20/18 History AtorvaSTATin [Lipitor] 40 mg PO DAILY #30 tablet 03/27/18 11/20/18 11/20/18 Rx Ranitidine HCl [Acid Control] 150 mg PO BID #60 tablet 03/27/18 11/20/18 11/20/18 Rx Aspirin EC [Halfprin EC] 81 mg PO QDAY #30 tablet 04/26/18 11/20/18 11/20/18 Rx Clopidogrel [Plavix] 75 mg PO QDAY #30 tablet 04/26/18 11/20/18 11/20/18 Rx HYDROcodone/APAP 5-325 [[place] 1 each PO Q4HR PRN #30 tablet 04/26/18 11/20/18 11/20/18 Rx 5-325 mg TAB] traZODone [Desyrel] 50 mg PO QHS #30 tablet 04/26/18 11/20/18 11/20/18 Rx Carvedilol [Coreg] 25 mg PO BID #60 tablet 05/22/18 11/20/18 11/20/18 Rx Active Meds: Active Medications Acetaminophen (Tylenol) 650 mg PO Q4H PRN PRN Reason: Pain MILD(1-3)/Fever >100.5/[place] Acetaminophen/Hydrocodone Bitart ([place] 5/325) 1 each PO Q4HR PRN PRN Reason: Pain Last Admin: 11/21/18 03:28 Dose: 1 each Documented by: Aspirin (Halfprin Ec) 81 mg PO QDAY [facility] Last Admin: 11/21/18 10:26 Dose: 81 mg Documented by: Atorvastatin Calcium (Lipitor) 40 mg PO DAILY [facility] Last Admin: 11/21/18 10:27 Dose: 40 mg Documented by: Carvedilol (Coreg) 25 mg PO BID [facility] Last Admin: 11/21/18 10:29 Dose: Not Given Documented by: Clopidogrel Bisulfate (Plavix) 75 mg PO QDAY [facility] Last Admin: 11/21/18 10:27 Dose: 75 mg Documented by: Ergocalciferol (Vitamin D2) 25,[address] [facility] Famotidine (Pepcid) 20 mg PO QDAY [facility] Last Admin: 11/21/18 10:27 Dose: 20 mg Documented by: Fluoxetine HCl (Prozac) 20 mg PO QDAY [facility] Last Admin: 11/21/18 10:27 Dose: 20 mg Documented by: Furosemide (Lasix) 40 mg IV BID@0600,1800 [facility] Last Admin: 11/21/18 07:41 Dose: Not Given Documented by: Heparin Sodium (Porcine) (Heparin) 5,000 unit SUB-Q Q12HR [facility] Last Admin: 11/21/18 10:28 Dose: 5,000 unit Documented by: Insulin Human Regular (Humulin R) 0 units SUB-Q [facility]; Protocol Last Admin: 11/21/18 07:30 Dose: Not Given Documented by: Ondansetron HCl (Zofran) 4 mg IV Q8H PRN PRN Reason: Nausea And Vomiting Prednisolone Acetate (Pred Forte 1%) 1 drops OD QID [facility] Last Admin: 11/20/18 22:29 Dose: 1 drops Documented by: Sodium Chloride (Sodium Chloride Flush Syringe 10 Ml) 10 ml IV BID [facility] Last Admin: 11/21/18 10:30 Dose: 10 ml Documented by: Sodium Chloride (Sodium Chloride Flush Syringe 10 Ml) 10 ml IV PRN PRN PRN Reason: LINE FLUSH Trazodone HCl (Desyrel) 50 mg PO QHS [facility] Last Admin: 11/20/18 22:27 Dose: 50 mg Documented by: Review of Systems All systems: negative (sob) Physical Examination Vital Signs Pulse Pulse Ox 88 95 11/20/18 14:52 11/20/18 14:52 Cardiac: Positive: Systolic Murmur (2/6 at base of the heart.) Results 11/21/18 03:50 11/21/18 03:50 Cardiac Enzymes 11/21/18 Range/Units 03:50 AST 12 (5-40) units/L Coagulation 11/20/18 Range/Units 15:28 PT 13.3 (12.2-14.9) Sec. INR 1.04 (0.87-1.13) APTT 33.5 (24.2-36.6) Sec. Lipids 11/20/18 Range/Units 17:39 Triglycerides 80 (2-149) mg/dL Cholesterol 129 (50-199) mg/dL HDL Cholesterol 55 (40-59) mg/dL Cholesterol/HDL Ratio 2.34 % CBC 11/20/18 11/21/18 Range/Units 15:28 03:50 WBC 6.1 6.4 (4.5-11.0) K/mm3 RBC 3.20 L 2.88 L (3.65-5.03) M/mm3 Hgb 9.2 L 8.4 L (11.8-15.2) gm/dl Hct 27.9 L 25.2 L (35.5-45.6) % Plt Count 124 L 118 L (140-440) K/mm3 Lymph # 1.2 1.2 (1.2-5.4) K/mm3 [place] # 0.7 0.9 H (0.0-0.8) K/mm3 Eos # 0.1 0.2 (0.0-0.4) K/mm3 Baso # 0.0 0.0 (0.0-0.1) K/mm3 Comprehensive Metabolic Panel 11/20/18 11/21/18 Range/Units 15:28 03:50 Sodium 137 139 (137-145) mmol/L Potassium 4.7 3.6 D (3.6-5.0) mmol/L Chloride 99.9 101.5 (98-107) mmol/L Carbon Dioxide 23 26 (22-30) mmol/L BUN 66 H 70 H (9-20) mg/dL Creatinine 3.9 H 3.9 H (0.8-1.5) mg/dL Glucose 306 H 71 L (75-100) mg/dL Calcium 8.0 L 7.8 L (8.4-10.2) mg/dL AST 12 (5-40) units/L ALT 5 L (7-56) units/L Alkaline Phosphatase 66 (35-129) units/L Total Protein 5.3 L (6.3-8.2) g/dL Albumin 2.2 L (3.9-5) g/dL EKG interpretations - Telemetry EKG Rhythm: Sinus Rhythm (WNL) Assessment and Plan Acute on chronic systolic hear failure. CKD stage 3 -nephrotic range proteinuria -DM -B/L BKA -CAD s/p CABG suggest: IV lasix and betablockers,statin. Hold KRISTINE or ARB because of ARF
[2018-11-21] MEDS: DESYREL PO SCH (21:32)
[2018-11-21] MEDS: HumaLOG SUB-Q SCH (21:35)
[2018-11-22] MEDS ORDERED: D50W (25GM) Syringe IV PRN (01:18)
[2018-11-22 04:01] LABS: Hematocrit 23.3 % (35.5-45.6); Hemoglobin 7.8 gm/dl (11.8-15.2); Mean Corpuscular HGB Conc 33 % (32-34); Mean Corpuscular Volume 87 fl (84-94); Red Blood Count 2.67 M/mm3 (3.65-5.03); Red Cell Distribution Width 14.9 % (13.2-15.2)
[2018-11-22 04:13] LABS: Platelet Count 96 K/mm3 (140-440)
[2018-11-22 04:16] LABS: Calcium 7.7 mg/dL (8.4-10.2)
[2018-11-22] MEDS ORDERED: NACL 0.9% 250ML 250 ML IV ONE (04:36)
[2018-11-22] MEDS: HumuLIN R SUB-Q SCH ×4 (07:30→21:51)
[2018-11-22] MEDS: LASIX IV SCH (07:36)
[2018-11-22] MEDS: HumaLOG SUB-Q SCH (08:00)
[2018-11-22] MEDS: PRED FORTE 1% OD SCH ×4 (10:29→21:55)
[2018-11-22] MEDS: HALFPRIN EC PO SCH (10:29)
[2018-11-22] MEDS: HEPARIN SUB-Q SCH ×2 (10:30→21:53)
[2018-11-22] MEDS: PEPCID PO SCH (10:30)
[2018-11-22] MEDS: PLAVIX PO SCH (10:30)
[2018-11-22] MEDS: SODIUM CHLORIDE FLUSH SYRINGE 10 ML IV SCH ×2 (10:31→21:55)
--- NOTE | 2018-11-22 11:03 | Progress Note ---
Assessment and Plan Assessment: -CKD stage 3 with DAHIANA likely from cardiorenal physiology. In reviewing his outside records (document in consult HPI), he has CKD at baseline likely secondary to DM, HTN, cardiovascular disease. -nephrotic range proteinuria -DM -B/L BKA -CAD s/p CABG Plan: -continue aggressive volume management with IV diuretics for goal net negative 2L. Discussed low salt and fluid intake goals with patient to avoid volume overload. Appreciate cardiology recommendations -will need outpatient follow up with nephrology; information given to patient. In outpatient setting, may consider KRISTINE-I/ARB if creatinine is stable given proteinuria but no indication now with DAHIANA -will send workup for secondary causes of nephrotic range proteinuria. Likely diabetic but rule out HIV, hepatitis, myeloma. HIV negative. Consider biopsy if unclear in outpatient setting -BP soft this morning, may need to hold home meds if systolic <100 to avoid further renal hypoperfusion injury -strict Is/Os -avoid nephrotoxins -renally dose meds -low salt diet Thank you for this consult. We will continue to follow; please do not hesitate to reach out with questions or concerns. Subjective Date of service: 11/22/18 Principal diagnosis: congestive heart failure exacerbation Interval history: no acute events overnight. Notes improvement in breathing but still on 3L NC. About to start physical therapy Objective - Exam Narrative Exam: General appearance: well-developed, well-nourished, appears stated age EENT: PERRL, mucous membranes moist Neck: Present: neck supple, trachea midline Respiratory: Clear to Auscultation, but decreased bilaterally. 3L NC noted Heart: regular, normal heart rate, S1S2, no murmurs Gastrointestinal: Present: normal, normoactive bowel sounds Integumentary: no rash Neurologic: no focal deficit Musculoskeletal: b/l BKA noted Psychiatric: mood/affect appropriate - Vital Signs Vital signs: Vital Signs - 12hr 11/21/18 11/22/18 11/22/18 23:37 00:00 03:02 Temperature 98.1 F 98.6 F Pulse Rate 62 40 L Respiratory 18 20 18 Rate Blood Pressure 116/59 88/43 O2 Sat by Pulse 96 97 97 Oximetry 11/22/18 11/22/18 11/22/18 04:00 04:53 04:54 Temperature 98.6 F Pulse Rate 39 L 45 L 45 L Respiratory 20 Rate Blood Pressure 122/63 O2 Sat by Pulse 100 100 Oximetry 11/22/18 08:59 Temperature 98.2 F Pulse Rate 52 L Respiratory 18 Rate Blood Pressure 138/68 O2 Sat by Pulse 100 Oximetry - Lab 11/22/18 03:49 11/22/18 03:49 Most recent lab results Calcium 7.7 mg/dL (8.4-10.2) L 11/22/18 03:49 Magnesium 1.90 mg/dL (1.7-2.3) 11/20/18 20:32 Medications & Allergies - Medications Allergies/Adverse Reactions: Allergies No Known Allergies Allergy (Verified 04/15/18 11:51) Home Medications: Home Medications Medication Instructions Recorded Confirmed Last Taken Type prednisoLONE ACETATE 1% [Pred 1 drops OP QID 01/07/13 11/20/18 11/20/18 History Forte 1%] FLUoxetine [PROzac] 20 mg PO QDAY 03/24/18 11/20/18 11/20/18 History AtorvaSTATin [Lipitor] 40 mg PO DAILY #30 tablet 03/27/18 11/21/18 11/20/18 Rx Ranitidine HCl [Acid Control] 150 mg PO BID #60 tablet 03/27/18 11/20/18 11/20/18 Rx Aspirin EC [Halfprin EC] 81 mg PO QDAY #30 tablet 04/26/18 11/21/18 11/20/18 Rx Clopidogrel [Plavix] 75 mg PO QDAY #30 tablet 04/26/18 11/21/18 11/20/18 Rx HYDROcodone/APAP 5-325 [[place] 1 each PO Q4HR PRN #30 tablet 04/26/18 11/21/18 11/20/18 Rx 5-325 mg TAB] traZODone [Desyrel] 50 mg PO QHS #30 tablet 04/26/18 11/20/18 11/20/18 Rx Carvedilol [Coreg] 25 mg PO BID #60 tablet 05/22/18 11/20/18 11/20/18 Rx ALPRAZolam [Xanax TAB] 0.5 mg PO TID PRN 11/21/18 11/21/18 Unknown History Divalproex ER [DepaKOTE ER] 500 mg PO DAILY 11/21/18 11/21/18 Unknown History Ergocalciferol (Vitamin D2) 50,000 unit PO 1XW 11/21/18 11/21/18 Unknown History [Vitamin D2] Finasteride [Proscar] 5 mg PO DAILY 11/21/18 11/21/18 Unknown History Furosemide [Lasix TAB] 40 mg PO QDAY 11/21/18 11/21/18 Unknown History Insulin Regular, Human [Novolin R] 15 unit SC TID 11/21/18 11/21/18 Unknown History amLODIPine [Norvasc] 5 mg PO DAILY 11/21/18 11/21/18 Unknown History Active Medications: Generic Name Dose Route Start Last Admin Trade Name Freq PRN Reason Stop Dose Admin Acetaminophen 650 mg 11/20/18 16:42 Tylenol PO Q4H PRN Pain MILD(1-3)/Fever >100.5/[place] Acetaminophen/Hydrocodone Bitart 1 each 11/20/18 19:31 11/21/18 21:32 [place] 5/325 PO 1 each Q4HR PRN Administration Pain Aspirin 81 mg 11/21/18 10:00 11/22/18 10:29 Halfprin Ec PO 81 mg QDAY LEROY Administration Atorvastatin Calcium 40 mg 11/21/18 10:00 11/22/18 10:29 Lipitor PO 40 mg DAILY LEROY Administration Clopidogrel Bisulfate 75 mg 11/21/18 10:00 11/22/18 10:30 Plavix PO 75 mg QDAY LEROY Administration Dextrose 25 ml 11/22/18 01:18 11/22/18 01:29 D50w (25gm) Syringe IV 25 ml PRN PRN Administration Hypoglycemia Divalproex Sodium 500 mg 11/21/18 20:00 11/22/18 10:29 Depakote Er PO 500 mg DAILY LEROY Administration Ergocalciferol 50,000 unit 11/28/18 10:00 Vitamin D2 PO Th LEROY Famotidine 20 mg 11/20/18 22:00 11/22/18 10:30 Pepcid PO 20 mg QDAY LEROY Administration Furosemide 40 mg 11/20/18 18:00 11/22/18 07:36 Lasix IV Not Given BID@0600,1800 LEROY Heparin Sodium (Porcine) 5,000 unit 11/20/18 22:00 11/22/18 10:30 Heparin SUB-Q 5,000 unit Q12HR LEROY Administration Insulin Human Lispro 12 unit 11/21/18 20:00 11/22/18 08:00 Humalog SUB-Q Not Given TID LEROY Insulin Human Regular 0 units 11/20/18 22:00 11/22/18 07:30 Humulin R SUB-Q Not Given ACHS [facility] Protocol Ondansetron HCl 4 mg 11/20/18 16:42 Zofran IV Q8H PRN Nausea And Vomiting Prednisolone Acetate 1 drops 11/20/18 22:00 11/22/18 10:29 Pred Forte 1% OD 1 drops QID LEROY Administration Sodium Chloride 10 ml 11/20/18 22:00 11/22/18 10:31 Sodium Chloride Flush Syringe 10 Ml IV 10 ml BID LEROY Administration Sodium Chloride 10 ml 11/20/18 16:42 Sodium Chloride Flush Syringe 10 Ml IV PRN PRN LINE FLUSH Trazodone HCl 50 mg 11/20/18 22:00 11/21/18 21:32 Desyrel PO 50 mg QHS LEROY Administration
[2018-11-22 11:13] LABS: Hepatitis B Surface Antigen Non-Reactive (Negative)
--- NOTE | 2018-11-22 11:20 | Progress Note ---
Assessment and Plan Acute on chronic systolic hear failure. CKD stage 3 -nephrotic range proteinuria -DM -B/L BKA -CAD s/p CABG suggest: IV lasix and betablockers,statin. Hold KRISTINE or ARB because of ARF Subjective Date of service: 11/22/18 Principal diagnosis: congestive heart failure exacerbation Interval history: Feeling slightly better with regard to breathing. No chest pain. Objective Vital Signs Temp Pulse Resp BP Pulse Ox 11/22/18 08:59 98.2 F 52 L 18 138/68 100 11/22/18 04:54 45 L 100 11/22/18 04:53 98.6 F 45 L 20 122/63 100 11/22/18 04:00 39 L 11/22/18 03:02 98.6 F 40 L 18 88/43 97 11/22/18 00:00 20 97 11/21/18 23:37 98.1 F 62 18 116/59 96 11/21/18 21:33 65 116/50 11/21/18 20:00 60 11/21/18 19:29 98.3 F 61 18 116/50 97 11/21/18 19:05 96 11/21/18 16:14 98.0 F 53 L 18 132/58 99 11/21/18 12:37 60 11/21/18 12:00 18 98 - Physical Examination Neck: Positive: neck supple, trachea midline. Negative: JVD/HJR, Masses - Labs and Meds CBC 11/22/18 Range/Units 03:49 WBC 6.2 (4.5-11.0) K/mm3 RBC 2.67 L (3.65-5.03) M/mm3 Hgb 7.8 L (11.8-15.2) gm/dl Hct 23.3 L (35.5-45.6) % Plt Count 96 L (140-440) K/mm3 Comprehensive Metabolic Panel 11/22/18 11/22/18 Range/Units 03:49 03:49 Sodium 133 L (137-145) mmol/L Potassium 3.6 (3.6-5.0) mmol/L Chloride 98.2 (98-107) mmol/L Carbon Dioxide 25 (22-30) mmol/L BUN 70 H (9-20) mg/dL Creatinine 4.6 H (0.8-1.5) mg/dL Glucose 87 92 (75-100) mg/dL Calcium 7.7 L (8.4-10.2) mg/dL
[2018-11-22 11:59] LABS: Hepatitis C Virus Antibody Reactive (NonReactive)
--- NOTE | 2018-11-22 15:36 | Progress Note ---
Assessment and Plan Assessment and plan: 73 YO Male with HTN, [place], DM, CAD S/P CABG, Dementia, OA, HLD presents to ED for evaluation. Pt states that he has experienced shortness of breath over the past 3 days with worsening symptoms over the past 1 day. Pt acknowledges Orthopnea/PND, Dypsnea on exertion, as well as dypsnea at rest, and decreased exercise tolerance. Pt also acknowledges feeling generalized weakness and decreased appetite. EMS notified, and upon arrival the patient was found to be in distress and transported to [facility]. Pt seen and evaluated in ED and found to have CHF Decompensation, Acute Kidney Injury, and Generalized deconditioning. Pt admitted to telemetry. Pt denies fever, chills, CP, Palpitations, NVD, Trauma, Skin Rash, BRBPR, Unintentional weight loss, unilateral leg swelling, calf pain, prolonged travel/immobility, individual/family history of DVT/PE/Bleeding/Blood Clotting Disorders, Hemoptysis, or night sweats. (1) CHF exacerbation Current Visit: No Status: Acute Qualifiers: Heart failure type: systolic Qualified Code(s): I50.23 - Acute on chronic systolic (congestive) heart failure Plan to address problem: continue strict I/O, daily weight, BNP, supplemental oxygen, a monitor uop q shift, chest x ray, thyroid panel, magnesium level, cardiology consulted, Echo from 04/15/18 reviewed. EF 40%. HOLD ACEI AND Adjust lasix (2) Acute kidney injury (DAHIANA) with acute tubular necrosis (ATN) Current Visit: Yes Status: Acute Plan to address problem: monitor uop q shift, urine electrolytes, supportive care. Nephrology consulted, Worse, was noted to have transient hypotension this am but improved (3) History of agent [place] exposure Current Visit: Yes Status: Acute Plan to address problem: Supportive care, neuro checks, diabetes control, (4) Blindness Current Visit: Yes Status: Acute Plan to address problem: Outpatient ophthalmology F/U care (5) HLD (hyperlipidemia) Current Visit: Yes Status: Acute Qualifiers: Hyperlipidemia type: mixed hyperlipidemia Qualified Code(s): E78.2 - Mixed hyperlipidemia Plan to address problem: Statin therapy, lipid panel, supportive care. (6) CAD (coronary artery disease) Current Visit: Yes Status: Acute Qualifiers: Associated angina: without angina Plan to address problem: Statin therapy, low cholesterol diet, risk factor reduction (7) Diabetes Current Visit: No Status: Acute Plan to address problem: ADA diet, insulin, accu check, hypoglycemia protocol adjust insulin,. its apparent by patients hypoglycemic aleishaiode that he is not taking the insulin regime that [facility] has on file. Patient also confirms that he only uses slidding scale and does not take any if Glucose is below 200 (8) HTN (hypertension) Current Visit: No Status: Acute Qualifiers: Hypertension type: unspecified Qualified Code(s): I10 - Essential (primary) hypertension Plan to address problem: ADA diet, insulin, accu check, supportive care. (9) Weakness generalized Current Visit: Yes Status: Acute Plan to address problem: PT consulted, supportive care. (10) DVT prophylaxis Current Visit: No Status: Acute Plan to address problem: SCD to BLE while in bed, History Interval history: Patient seen and examined, improving orthopnea, no other complaints. Hospitalist Physical - Physical exam Narrative exam: General appearance: Present: mild distress - EENT Eyes: Present: PERRL ENT: hearing intact, clear oral mucosa - Neck Neck: Present: supple, normal ROM - Respiratory Respiratory effort: labored Respiratory: bilateral: diminished, rhonchi - Extremities Extremity abnormal: edema Peripheral Pulses: within normal limits - Abdominal General gastrointestinal: Present: soft, non-tender, non-distended, normal bowel sounds Male genitourinary: Present: normal - Integumentary Integumentary: Present: multiple sores in the knees and at the stump. No erythema or cellulitis - Musculoskeletal Musculoskeletal: generalized weakness, bilateral BKA - Psychiatric Psychiatric: appropriate mood/affect, intact judgment & insight - Neurologic Neurologic: CNII-XII intact, moves all extremities, no gait normal - Constitutional Vitals: Temp Pulse Resp BP Pulse Ox 97.6 F 63 20 116/61 96 11/22/18 11:41 11/22/18 11:41 11/22/18 12:00 11/22/18 11:41 11/22/18 11:41 General appearance: Present: mild distress Results - Labs CBC & Chem 7: 11/22/18 03:49 11/22/18 03:49 Labs: Laboratory Last Values WBC 6.2 K/mm3 (4.5-11.0) 11/22/18 03:49 RBC 2.67 M/mm3 (3.65-5.03) L 11/22/18 03:49 Hgb 7.8 gm/dl (11.8-15.2) L 11/22/18 03:49 Hct 23.3 % (35.5-45.6) L 11/22/18 03:49 MCV 87 fl (84-94) 11/22/18 03:49 MCH 29 pg (28-32) 11/22/18 03:49 MCHC 33 % (32-34) 11/22/18 03:49 RDW 14.9 % (13.2-15.2) 11/22/18 03:49 Plt Count 96 K/mm3 (140-440) L 11/22/18 03:49 Lymph % (Auto) 18.4 % (13.4-35.0) 11/21/18 03:50 [place] % (Auto) 14.4 % (0.0-7.3) H 11/21/18 03:50 Eos % (Auto) 3.7 % (0.0-4.3) 11/21/18 03:50 Baso % (Auto) 0.5 % (0.0-1.8) 11/21/18 03:50 Lymph # 1.2 K/mm3 (1.2-5.4) 11/21/18 03:50 [place] # 0.9 K/mm3 (0.0-0.8) H 11/21/18 03:50 Eos # 0.2 K/mm3 (0.0-0.4) 11/21/18 03:50 Baso # 0.0 K/mm3 (0.0-0.1) 11/21/18 03:50 Seg Neutrophils % 63.0 % (40.0-70.0) 11/21/18 03:50 Seg Neutrophils # 4.0 K/mm3 (1.8-7.7) 11/21/18 03:50 PT 13.3 Sec. (12.2-14.9) 11/20/18 15:28 INR 1.04 (0.87-1.13) 11/20/18 15:28 APTT 33.5 Sec. (24.2-36.6) 11/20/18 15:28 Sodium 133 mmol/L (137-145) L 11/22/18 03:49 Potassium 3.6 mmol/L (3.6-5.0) 11/22/18 03:49 Chloride 98.2 mmol/L (98-107) 11/22/18 03:49 Carbon Dioxide 25 mmol/L (22-30) 11/22/18 03:49 13 mmol/L 11/22/18 03:49 BUN 70 mg/dL (9-20) H 11/22/18 03:49 4.6 mg/dL (0.8-1.5) H 11/22/18 03:49 Estimated GFR 13 ml/min 11/22/18 03:49 15 % 11/22/18 03:49 Glucose 87 mg/dL (75-100) 11/22/18 03:49 Glucose 92 mg/dL (75-100) 11/22/18 03:49 POC Glucose 239 (70-105) H 11/22/18 11:46 Calcium 7.7 mg/dL (8.4-10.2) L 11/22/18 03:49 Magnesium 1.90 mg/dL (1.7-2.3) 11/20/18 20:32 < 0.20 mg/dL (0.1-1.2) 11/21/18 03:50 AST 12 units/L (5-40) 11/21/18 03:50 ALT 5 units/L (7-56) L 11/21/18 03:50 66 units/L (35-129) 11/21/18 03:50 0.086 ng/mL (0.00-0.029) H 11/20/18 17:39 NT-Pro-B Natriuret Pep 56846 pg/mL (0-900) H 11/20/18 15:28 5.3 g/dL (6.3-8.2) L 11/21/18 03:50 2.2 g/dL (3.9-5) L 11/21/18 03:50 0.7 % 11/21/18 03:50 Triglycerides 80 mg/dL (2-149) 11/20/18 17:39 Cholesterol 129 mg/dL (50-199) 11/20/18 17:39 74 mg/dL (50-130) 11/20/18 17:39 55 mg/dL (40-59) 11/20/18 17:39 2.34 % 11/20/18 17:39 TSH 3.900 mlU/mL (0.270-4.200) 11/20/18 20:32 Free T4 0.81 ng/dL (0.76-1.46) 11/20/18 20:32 Straw (Yellow) 11/20/18 16:15 Clear (Clear) 11/20/18 16:15 6.0 (5.0-7.0) 11/20/18 16:15 Ur Specific [place] 1.010 (1.003-1.030) 11/20/18 16:15 >500 mg/dL (Negative) 11/20/18 16:15 >=500 mg/dL (Negative) 11/20/18 16:15 Neg mg/dL (Negative) 11/20/18 16:15 Mod (Negative) 11/20/18 16:15 Neg (Negative) 11/20/18 16:15 Neg (Negative) 11/20/18 16:15 < 2.0 mg/dL (<2.0) 11/20/18 16:15 Ur Leukocyte Esterase Tr (Negative) 11/20/18 16:15 8.0 /HPF (0.0-6.0) H 11/20/18 16:15 47.0 /HPF (0.0-6.0) 11/20/18 16:15 Hepatitis A IgM Ab Non-reactive (NonReactive) 11/22/18 09:42 Hep Bs Antigen Non-reactive (Negative) 11/22/18 09:42 Hep B Core IgM Ab Non-reactive (NonReactive) 11/22/18 09:42 Reactive (NonReactive) A 11/22/18 09:42 HIV 1&2 Antibody Rapid Non react (Non React) 11/22/18 09:42 Non react (Non React) 11/22/18 09:42 Active Medications - Current Medications Current Medications: Generic Name Dose Route Start Last Admin Trade Name Freq PRN Reason Stop Dose Admin Acetaminophen 650 mg 11/20/18 16:42 Tylenol PO Q4H PRN Pain MILD(1-3)/Fever >100.5/[place] Acetaminophen/Hydrocodone Bitart 1 each 11/20/18 19:31 11/21/18 21:32 [place] 5/325 PO 1 each Q4HR PRN Administration Pain Aspirin 81 mg 11/21/18 10:00 11/22/18 10:29 Halfprin Ec PO 81 mg QDAY LEROY Administration Atorvastatin Calcium 40 mg 11/21/18 10:00 11/22/18 10:29 Lipitor PO 40 mg DAILY LEROY Administration Clopidogrel Bisulfate 75 mg 11/21/18 10:00 11/22/18 10:30 Plavix PO 75 mg QDAY LEROY Administration Dextrose 25 ml 11/22/18 01:18 11/22/18 01:29 D50w (25gm) Syringe IV 25 ml PRN PRN Administration Hypoglycemia Divalproex Sodium 500 mg 11/21/18 20:00 11/22/18 10:29 Depakote Er PO 500 mg DAILY LEROY Administration Ergocalciferol 50,000 unit 11/28/18 10:00 Vitamin D2 PO Th [facility] Famotidine 20 mg 11/20/18 22:00 11/22/18 10:30 Pepcid PO 20 mg QDAY LEROY Administration Furosemide 40 mg 11/23/18 10:00 Lasix IV QDAY [facility] Heparin Sodium (Porcine) 5,000 unit 11/20/18 22:00 11/22/18 10:30 Heparin SUB-Q 5,000 unit Q12HR [facility] Administration Insulin Glargine 10 units 11/22/18 22:00 Lantus SUB-Q QHS [facility] Insulin Human Regular 0 units 11/20/18 22:00 11/22/18 07:30 Humulin R SUB-Q Not Given ACHS [facility] Protocol Ondansetron HCl 4 mg 11/20/18 16:42 Zofran IV Q8H PRN Nausea And Vomiting Prednisolone Acetate 1 drops 11/20/18 22:00 11/22/18 10:29 Pred Forte 1% OD 1 drops QID LEROY Administration Sodium Chloride 10 ml 11/20/18 22:00 11/22/18 10:31 Sodium Chloride Flush Syringe 10 Ml IV 10 ml BID LEROY Administration Sodium Chloride 10 ml 11/20/18 16:42 Sodium Chloride Flush Syringe 10 Ml IV PRN PRN LINE FLUSH Trazodone HCl 50 mg 11/20/18 22:00 11/21/18 21:32 Desyrel PO 50 mg QHS LEROY Administration
[2018-11-22] MEDS: NORCO 5/325 PO PRN (21:53)
[2018-11-22] MEDS: DESYREL PO SCH (21:53)
[2018-11-22] MEDS ORDERED: LANTUS SUB-Q SCH (22:00)
[2018-11-23 08:30] VITALS: BP 123/62
[2018-11-23] MEDS: HumuLIN R SUB-Q SCH ×2 (09:46→12:07)
[2018-11-23] MEDS: PEPCID PO SCH (09:48)
[2018-11-23] MEDS: HALFPRIN EC PO SCH (09:48)
[2018-11-23] MEDS: PLAVIX PO SCH (09:48)
[2018-11-23] MEDS: HEPARIN SUB-Q SCH (09:48)
[2018-11-23] MEDS: PRED FORTE 1% OD SCH (09:49)
[2018-11-23] MEDS: SODIUM CHLORIDE FLUSH SYRINGE 10 ML IV SCH (09:49)
[2018-11-23] MEDS: NORCO 5/325 PO PRN (09:49)
[2018-11-23] MEDS ORDERED: LASIX IV SCH (10:00)
--- NOTE | 2018-11-23 10:59 | Discharge Summary ---
Providers - Providers Date of Admission: 11/20/18 16:43 Attending physician: ANTOINE JOYA MD 11/20/18 19:18 Consult to Physician [CONS] Routine Comment: Consulting Provider: NATALIA TORRES Physician Instructions: Reason For Exam: CHF 11/20/18 19:33 Consult to Physician [CONS] Routine Comment: Consulting Provider: MK MORENO Physician Instructions: Reason For Exam: [place]HIANA Physical Therapy Evaluation and Treat [CONS] Routine Comment: Reason For Exam: weakness 11/22/18 06:30 Consult to Wound/ET Nurse [CONS] Routine Reason For Exam: wound eval Primary care physician: CASINO ACCOUNTANT Hospitalization Condition: Stable Hospital course: 73 YO Male with HTN, [place], DM, CAD S/P CABG, Dementia, OA, HLD presents to ED for evaluation. Pt states that he has experienced shortness of breath over the past 3 days with worsening symptoms over the past 1 day. Pt acknowledges Orthopnea/PND, Dypsnea on exertion, as well as dypsnea at rest, and decreased exercise tolerance. Pt also acknowledges feeling generalized weakness and decreased appetite. EMS notified, and upon arrival the patient was found to be in distress and transported to [facility]. Pt seen and evaluated in ED and found to have CHF Decompensation, Acute Kidney Injury, and Generalized deconditioning. Pt admitted to telemetry. Pt denies fever, chills, CP, Palpitations, NVD, Trauma, Skin Rash, BRBPR, Unintentional weight loss, unilateral leg swelling, calf pain, prolonged travel/immobility, individual/family history of DVT/PE/Bleeding/Blood Clotting Disorders, Hemoptysis, or night sweats. BB HELD DUE TO BRADYCARDIA (1) CHF exacerbation Current Visit: No Status: Acute Qualifiers: Heart failure type: systolic Qualified Code(s): I50.23 - Acute on chronic systolic (congestive) heart failure Plan to address problem: continue strict I/O, daily weight, BNP, supplemental oxygen, a monitor uop q shift, chest x ray, thyroid panel, magnesium level, cardiology consulted, Echo from 04/15/18 reviewed. EF 40%. HOLD ACEI AND Adjust lasix (2) Acute kidney injury (DAHIANA) with acute tubular necrosis (ATN) Current Visit: Yes Status: Acute Plan to address problem: monitor uop q shift, urine electrolytes, supportive care. Nephrology consulted, Worse, was noted to have transient hypotension this am but improved (3) History of agent [place] exposure Current Visit: Yes Status: Acute Plan to address problem: Supportive care, neuro checks, diabetes control, (4) Blindness Current Visit: Yes Status: Acute Plan to address problem: Outpatient ophthalmology F/U care (5) HLD (hyperlipidemia) Current Visit: Yes Status: Acute Qualifiers: Hyperlipidemia type: mixed hyperlipidemia Qualified Code(s): E78.2 - Mixed hyperlipidemia Plan to address problem: Statin therapy, lipid panel, supportive care. (6) CAD (coronary artery disease) Current Visit: Yes Status: Acute Qualifiers: Associated angina: without angina Plan to address problem: Statin therapy, low cholesterol diet, risk factor reduction (7) Diabetes Current Visit: No Status: Acute Plan to address problem: ADA diet, insulin, accu check, hypoglycemia protocol adjust insulin,. its apparent by patients hypoglycemic epsiode that he is not taking the insulin regime that [facility] has on file. Patient also confirms that he only uses slidding scale and does not take any if Glucose is below 200 (8) HTN (hypertension) Current Visit: No Status: Acute Qualifiers: Hypertension type: unspecified Qualified Code(s): I10 - Essential (primary) hypertension Plan to address problem: ADA diet, insulin, accu check, supportive care. (9) Weakness generalized Current Visit: Yes Status: Acute Plan to address problem: PT consulted, supportive care. (10) DVT prophylaxis Current Visit: No Status: Acute Plan to address problem: SCD to BLE while in bed, Disposition: DC-01 TO HOME OR SELFCARE Time spent for discharge: 35 min Exam - Constitutional Vitals: Temp Pulse Resp BP Pulse Ox 97.9 F 54 L 24 123/62 95 11/23/18 07:59 11/23/18 07:59 11/23/18 07:59 11/23/18 07:59 11/23/18 07:59 Plan Activity: advance as tolerated, fall precautions Diet: low fat, low salt, diabetic Special Instructions: record daily weights, record daily BP diary, record blood sugar diary Follow up with: NEHEMIAH COOLEY MD [Primary Care Provider] - 7 Days CHANTAL QUIÑONES MD [Staff Physician] - 7 Days JAZMINE ORTIZ MD [Staff Physician] - 7 Days Prescriptions: Insulin Glargine [Lantus VIAL] 16 units SUB-Q QHS #30 units
[2018-11-23] MEDS ORDERED: APRESOLINE PO SCH (11:00)
[2018-11-23 11:04] LABS: Calcium 7.8 mg/dL (8.4-10.2)
[2018-11-23] MEDS ORDERED: LANTUS SUB-Q SCH (22:00)
[2018-11-26 00:26] LABS: Albumin 2.3 g/dL (3.8-4.8); Gamma Globulin 1.3 g/dL (0.8-1.7)
[2018-11-27] MEDS ORDERED: VITAMIN D2 PO SCH (10:00)
[2018-11-28] MEDS ORDERED: VITAMIN D2 PO SCH (10:00)
== END 2018-11-23 13:30 | disposition home health service (06) | DRG 682 ==
LOC: ED 14:39 → 4A 16:43
PROVIDERS: ADMIT Internal Medicine; ATTEND Internal Medicine
DX: N17.0 Acute kidney failure with tubular necrosis (principal); I50.23 Acute on chronic systolic (congestive) heart failure; I13.0 Hypertensive heart and chronic kidney disease with heart failure and stage 1 through stage 4 chronic kidney disease, or unspecified chronic kidney disease; I25.810 Atherosclerosis of coronary artery bypass graft(s) without angina pectoris; E11.22 Type 2 diabetes mellitus with diabetic chronic kidney disease; N18.3 Chronic kidney disease, stage 3 (moderate); F03.90 Unspecified dementia, unspecified severity, without behavioral disturbance, psychotic disturbance, mood disturbance, and anxiety; R00.1 Bradycardia, unspecified; M19.90 Unspecified osteoarthritis, unspecified site; E78.2 Mixed hyperlipidemia; H54.7 Unspecified visual loss; I25.2 Old myocardial infarction; Z95.1 Presence of aortocoronary bypass graft; Z89.512 Acquired absence of left leg below knee; Z79.899 Other long term (current) drug therapy; Z89.612 Acquired absence of left leg above knee; Z89.611 Acquired absence of right leg above knee; Z95.810 Presence of automatic (implantable) cardiac defibrillator
CPT/HCPCS: 36415; 71045; 78582; 80048; 80053; 80061; 80074; 81001; 82947; 82962; 83735; 83880; 84165; 84439; 84443; 84484; 85025; 85027; 85610; 85730; 86334; 87806; 93005; 93010; 94760; 96374; 96375; G0378; A9270-GY; A9540; A9558; J1644; J1815; J1940; J2405; J7050